=== PATIENT | male | born 1970 | race African-American/Black ===

== ENCOUNTER 2020-04-16 15:37 | Observation (INO) ==
[2020-04-16] MEDS ORDERED: LACTATED RINGERS 2,000 ML IV ONE ×2 (16:11→18:11)
[2020-04-16 16:23] LABS: Basophils % 0.3 % (0.0-0.8); Eosinophils # 0.1 10*3/uL (0.0-0.87); Eosinophils % 2.1 % (0.00-10.9); Hematocrit 36.2 VOL% (42.0-52.0); Immature Granulocytes % 0.6 %; Immature Granulocytes Absolute 0.04 #; Lymphocytes # 1.6 10*3/uL (1.4-4.0); Lymphocytes % 24.8 % (21.2-54.2); Mean Corpuscular HGB Conc 33.1 GM/DL (32-36); Mean Platelet Volume 10.5 FL (9.6-12.0); Monocytes % 13.2 % (1.7-12.7); Platelet Count 204 T/CUMM (130-400); Red Blood Count 3.85 MC/CUMM (3.8-5.5); Red Cell Distribution Width 12.1 % (9.3-17.3); White Blood Count 6.5 T/CUMM (4-12)
[2020-04-16 16:50] LABS: Alanine Aminotransferase 33 U/L (16-61); Alkaline Phosphatase 68 U/L (45-117); Aspartate Amino Transferase 35 U/L (0-37); Bilirubin,Total < 0.39 MG/DL (0.2-1.0); Blood Urea Nitrogen 18 MG/DL (7-18); Calcium 8.4 MG/DL (8.5-10.1); Estimated Glom Filtration Rate 82 ML/MIN; Ferritin 525.2 ng/ml (26-388); Osmolality,Calculated 277.4 MOS/KG (273-304); Total Protein 7.9 G/DL (6.4-8.3)
[2020-04-16 16:51] LABS: Glucose 519 MG/DL (74-106)
[2020-04-16 17:30] LABS: ABG Base Excess -11.2 MMOL/L (-2.5-2.5); ABG HCO3 14.4 MMOL/L (20-26); ABG Oxygen Saturation 97.1 % (95-100); ABG PCO2 31.5 MM HG (35-48); ABG PH 7.278 (7.35-7.45); ABG PO2 107.2 MM HG (80-95); ABG TCO2 15.4 MMOL/L (23-27)
[2020-04-16] MEDS ORDERED: INSULIN NPH/REGULAR 70/30 100 UNIT/ML SUBCUT STA (17:45)
[2020-04-16] MEDS ORDERED: DEXTROSE 50% 25 GM/50 ML VIAL IV PRN (17:46)
[2020-04-16] MEDS ORDERED: GLUCAGON 1 MG VIAL IM PRN (17:46)
[2020-04-16] MEDS ORDERED: ONDANSETRON 4 MG/2 ML VIAL IV PRN (18:05)
[2020-04-16] MEDS ORDERED: ALUMINUM/MAGNES/SIMETH MAX STR 30 ML UDCUP PO PRN (18:05)
[2020-04-16 18:07] LABS: Bacteria,Urine Occasional /HPF (Few); Bilirubin,Urine Negative (Negative); Blood, Urine Negative (Negative); Glucose,Urine (UA) >=500 mg/dL (Negative); Hyaline Casts,Urine 3 /LPF (0-3); Ketones,Urine 5 mg/dL (Negative); Nitrite,Urine Negative (Negative); Protein,Urine Negative; RBC,Urine <1 /HPF (0-4); Urine Appearance CLEAR (Clear); Urine Color Yellow (Yellow); Urine Specific Gravity 1.024 (1.001-1.035); Urine Urobilinogen < 2.0 EU/DL (0.2-1.0); WBC,Urine 2 /HPF (0-6)
[2020-04-16 18:17] LABS: Barbiturates Screen,Urine Negative (Negative); Benzodiazepines Screen,Urine Negative (Negative); Cannabinoid Screen,Urine Negative (Negative); Opiate Screen,Urine Negative (Negative); Phencyclidine Screen,Urine Negative (Negative)
[2020-04-16] MEDS: POTASSIUM CHLORIDE 20 MEQ TABLET PO SCH ×2 (18:36→21:03)
[2020-04-16] MEDS: LACTATED RINGERS 1,000 ML IV SCH (20:10)
[2020-04-16] MEDS ORDERED: LORazepam 2 MG/1 ML VIAL IV PRN (20:11)
[2020-04-16 20:47] LABS: Risk Ratio 2.06; Thyroid Stimulating Hormone 2.06 uIU/ml (0.358-3.74); VLDL CHOLESTEROL 19.4 MG/DL
[2020-04-16] MEDS ORDERED: ENOXAPARIN 40 MG/0.4 ML SYRINGE SUBCUT SCH (21:00)
[2020-04-16 21:29] LABS: Troponin I < 0.015 NG/ML (0.00-0.045)
[2020-04-16] MEDS: INSULIN LISPRO 100 UNIT/ML SUBCUT SCH (21:39)
[2020-04-17] MEDS: INSULIN LISPRO 100 UNIT/ML SUBCUT SCH ×4 (00:23→12:08)
[2020-04-17] MEDS: POTASSIUM CHLORIDE 20 MEQ TABLET PO SCH ×2 (02:24→05:42)
[2020-04-17] MEDS: LACTATED RINGERS 1,000 ML IV SCH ×2 (02:25→09:35)
[2020-04-17] MEDS ORDERED: KETOROLAC 30 MG/1 ML VIAL IV ONE (02:41)
[2020-04-17 05:05] LABS: Calcium 7.7 MG/DL (8.5-10.1); Osmolality,Calculated 275.7 MOS/KG (273-304)
[2020-04-17 05:27] LABS: Troponin I < 0.015 NG/ML (0.00-0.045)
[2020-04-17] MEDS ORDERED: NICOTINE 21 MG/24 HR PATCH TRANSDERM PRN (07:12)
[2020-04-17] MEDS ORDERED: INSULIN NPH/REGULAR 70/30 100 UNIT/ML SUBCUT SCH ×2 (07:30→16:30)
[2020-04-17] MEDS ORDERED: CALCIUM GLUCONATE 2,000 MG in SODIUM CHLORIDE 0.9% 100 ML IV ONE (08:00)
[2020-04-17] MEDS ORDERED: ACETAMINOPHEN 325 MG TABLET PO PRN (08:09)
[2020-04-17] MEDS ORDERED: PANTOPRAZOLE 40 MG TABLET PO SCH (09:00)
[2020-04-17] MEDS ORDERED: THIAMINE 100 MG TABLET PO SCH (09:00)
[2020-04-17] MEDS ORDERED: FOLIC ACID 1 MG TABLET PO SCH (09:00)
[2020-04-17] MEDS ORDERED: MULTIVITAMIN (CENTRUM) TABLET PO SCH (09:00)
[2020-04-17 11:57] VITALS: BP 133/80
== END 2020-04-17 16:00 | disposition home or self-care (01) ==
LOC: N.ED 15:37 → INTOOBSV 18:03 → N.EDINP 18:03 → N.TELEN 18:41
PROVIDERS: ADMIT Internal Medicine; ATTEND Internal Medicine

== ENCOUNTER 2020-10-20 12:07 | Inpatient (IN) ==
[2020-10-20] MEDS ORDERED: SODIUM CHLORIDE 0.9% 1,000 ML IV STA ×2 (13:12→14:01)
[2020-10-20 13:47] LABS: ABG Base Excess -5.9 MMOL/L (-2.5-2.5); ABG HCO3 19.6 MMOL/L (20-26); ABG Oxygen Saturation 98.9 % (95-100); ABG PCO2 39.2 MM HG (35-48); ABG PH 7.313 (7.35-7.45); ABG TCO2 18.4 MMOL/L (23-27); Pt O2 Delivery Device Room Air
[2020-10-20] MEDS ORDERED: cefTRIAXone 1,000 MG in SODIUM CHLORIDE 0.9% 100 ML IV STA (14:03)
[2020-10-20] MEDS ORDERED: AZITHROMYCIN INJ 500 MG in SODIUM CHLORIDE 0.9% 250 ML IV STA (14:04)
[2020-10-20 14:14] LABS: Basophils % 0.3 % (0.0-0.8); Eosinophils # 0.1 10*3/uL (0.0-0.87); Eosinophils % 0.5 % (0.00-10.9); Hematocrit 29.9 VOL% (42.0-52.0); Hemoglobin 9.4 GM/DL (14.0-18.0); Immature Granulocytes % 0.7 %; Immature Granulocytes Absolute 0.09 #; Lymphocytes % 15.2 % (21.2-54.2); Mean Corpuscular HGB Conc 31.4 GM/DL (32-36); Mean Corpuscular Volume 95.8 FL (87-102); Mean Platelet Volume 10.9 FL (9.6-12.0); Monocytes % 9.5 % (1.7-12.7); Neutrophils % 73.8 % (38.7-73.9); Platelet Count 272 T/CUMM (130-400); Red Blood Count 3.12 MC/CUMM (3.8-5.5); Red Cell Distribution Width 14.1 % (9.3-17.3); White Blood Count 13.1 T/CUMM (4-12)
[2020-10-20 14:31] LABS: Albumin 2.7 G/DL (3.4-5.0); Bilirubin,Total 1.1 MG/DL (0.2-1.0); Calcium 9.1 MG/DL (8.5-10.1); Osmolality,Calculated 299.2 MOS/KG (273-304); Total Protein 7.7 G/DL (6.4-8.3)
[2020-10-20] MEDS ORDERED: NOREPINEPHRINE 4 MG/4 ML VIAL IV ONE (14:51)
[2020-10-20] MEDS ORDERED: NOREPINEPHRINE 8 MG in SODIUM CHLORIDE 0.9% 242 ML IV SCH (15:00)
[2020-10-20] MEDS ORDERED: ALBUTEROL 2.5 MG/3 ML NEB RESP TX PRN (15:32)
[2020-10-20] MEDS ORDERED: ONDANSETRON 4 MG/2 ML VIAL IV PRN (15:32)
[2020-10-20] MEDS ORDERED: INSULIN REGULAR 100 UNIT/ML IV ONE (15:35)
[2020-10-20] MEDS: PANTOPRAZOLE 40 MG TABLET PO SCH (16:42)
[2020-10-20] MEDS: SODIUM CHLORIDE 0.9% 1,000 ML IV SCH ×2 (16:42→23:49)
[2020-10-20] MEDS: ENOXAPARIN 40 MG/0.4 ML SYRINGE SUBCUT SCH (17:10)
[2020-10-20] MEDS: INSULIN LISPRO 100 UNIT/ML SUBCUT SCH ×2 (17:24→22:35)
[2020-10-20] MEDS: DEXTROSE 5% NACL 0.45% 1,000 ML IV PRN (18:56)
[2020-10-20 22:45] LABS: Bilirubin,Urine Negative (Negative); Blood, Urine Small mg/dL (Negative); Glucose,Urine (UA) >=500 mg/dL (Negative); Ketones,Urine Negative (Negative); Mucus,Urine Occasional /LPF (Occasional); Nitrite,Urine Negative (Negative); Protein,Urine Negative; RBC,Urine 9 /HPF (0-4); Sperm,Urine Occasional /HPF (Negative); Squamous Epithelial Cell,Urine Occasional /HPF (0-10); Urine Appearance Slightly Hazy (Clear); Urine Color Yellow (Yellow); Urine Specific Gravity 1.023 (1.001-1.035); Urine Urobilinogen < 2.0 EU/DL (0.2-1.0); WBC,Urine 50 /HPF (0-6)
[2020-10-21] MEDS: INSULIN LISPRO 100 UNIT/ML SUBCUT SCH ×6 (01:42→20:10)
[2020-10-21] MEDS: DEXTROSE 5% NACL 0.45% 1,000 ML IV PRN ×2 (02:57→11:55)
[2020-10-21 04:43] LABS: Basophils % 0.3 % (0.0-0.8); Eosinophils # 0.1 10*3/uL (0.0-0.87); Eosinophils % 0.9 % (0.00-10.9); Hematocrit 25.2 VOL% (42.0-52.0); Hemoglobin 8.4 GM/DL (14.0-18.0); Immature Granulocytes % 0.3 %; Immature Granulocytes Absolute 0.04 #; Lymphocytes % 16.3 % (21.2-54.2); Mean Corpuscular HGB Conc 33.3 GM/DL (32-36); Mean Corpuscular Volume 91.3 FL (87-102); Mean Platelet Volume 10.4 FL (9.6-12.0); Monocytes % 9.9 % (1.7-12.7); Neutrophils % 72.3 % (38.7-73.9); Platelet Count 241 T/CUMM (130-400); Red Blood Count 2.76 MC/CUMM (3.8-5.5); Red Cell Distribution Width 13.6 % (9.3-17.3); White Blood Count 12.3 T/CUMM (4-12)
[2020-10-21 05:08] LABS: Albumin 2.3 G/DL (3.4-5.0); Bilirubin,Total 0.4 MG/DL (0.2-1.0); Calcium 7.7 MG/DL (8.5-10.1); Osmolality,Calculated 280.3 MOS/KG (273-304); Potassium 3.6 MMOL/L (3.5-5.1); Total Protein 6.4 G/DL (6.4-8.3)
[2020-10-21] MEDS: SODIUM CHLORIDE 0.9% 1,000 ML IV SCH (07:16)
[2020-10-21] MEDS ORDERED: MAGNESIUM SULF RIDER 2 GM in PREMIX 1 EACH IV PRN (07:34)
[2020-10-21] MEDS: PANTOPRAZOLE 40 MG TABLET PO SCH (08:02)
[2020-10-21] MEDS: FOLIC ACID 1 MG TABLET PO SCH (08:02)
[2020-10-21] MEDS: THIAMINE 100 MG TABLET PO SCH (08:02)
[2020-10-21] MEDS ORDERED: POTASSIUM PHOSPHATE 30 MMOL in SODIUM CHLORIDE 0.9% 250 ML IV ONE (08:30)
[2020-10-21] MEDS: ENOXAPARIN 40 MG/0.4 ML SYRINGE SUBCUT SCH (17:03)
[2020-10-22] MEDS: INSULIN LISPRO 100 UNIT/ML SUBCUT SCH ×6 (00:32→20:47)
[2020-10-22 06:39] LABS: Basophils % 0.2 % (0.0-0.8); Eosinophils # 0.1 10*3/uL (0.0-0.87); Hematocrit 25.1 VOL% (42.0-52.0); Hemoglobin 8.4 GM/DL (14.0-18.0); Immature Granulocytes % 0.4 %; Immature Granulocytes Absolute 0.05 #; Lymphocytes # 1.8 10*3/uL (1.4-4.0); Lymphocytes % 15.6 % (21.2-54.2); Mean Corpuscular HGB Conc 33.5 GM/DL (32-36); Mean Corpuscular Volume 90.9 FL (87-102); Mean Platelet Volume 11.4 FL (9.6-12.0); Monocytes % 10.7 % (1.7-12.7); Neutrophils % 72.1 % (38.7-73.9); Platelet Count 217 T/CUMM (130-400); Red Blood Count 2.76 MC/CUMM (3.8-5.5); Red Cell Distribution Width 13.2 % (9.3-17.3); White Blood Count 11.3 T/CUMM (4-12)
[2020-10-22 06:51] LABS: Calcium 7.9 MG/DL (8.5-10.1); Osmolality,Calculated 276.8 MOS/KG (273-304); Potassium 4.3 MMOL/L (3.5-5.1)
[2020-10-22] MEDS: PANTOPRAZOLE 40 MG TABLET PO SCH (08:07)
[2020-10-22] MEDS: THIAMINE 100 MG TABLET PO SCH (08:07)
[2020-10-22] MEDS: FOLIC ACID 1 MG TABLET PO SCH (08:07)
[2020-10-22] MEDS: SODIUM BICARBONATE 650 MG TABLET PO SCH ×2 (16:30→20:45)
[2020-10-22] MEDS: CLINDAMYCIN INJ 600 MG in PREMIX 1 EACH IV SCH ×2 (16:30→23:58)
[2020-10-22] MEDS: LOPERAMIDE 2 MG CAPSULE PO PRN (16:30)
[2020-10-22] MEDS: NICOTINE 21 MG/24 HR PATCH TRANSDERM SCH (19:20)
[2020-10-22] MEDS: ENOXAPARIN 40 MG/0.4 ML SYRINGE SUBCUT SCH (19:26)
[2020-10-22] MEDS: INSULIN GLARGINE 100 UNIT/ML SUBCUT SCH (20:47)
[2020-10-23] MEDS: INSULIN LISPRO 100 UNIT/ML SUBCUT SCH ×6 (00:02→20:53)
[2020-10-23 06:16] LABS: Basophils % 0.2 % (0.0-0.8); Eosinophils # 0.1 10*3/uL (0.0-0.87); Eosinophils % 0.9 % (0.00-10.9); Hematocrit 23.3 VOL% (42.0-52.0); Hemoglobin 7.7 GM/DL (14.0-18.0); Immature Granulocytes % 0.4 %; Immature Granulocytes Absolute 0.03 #; Lymphocytes # 1.8 10*3/uL (1.4-4.0); Lymphocytes % 22.5 % (21.2-54.2); Platelet Count 247 T/CUMM (130-400); Red Blood Count 2.56 MC/CUMM (3.8-5.5); Red Cell Distribution Width 13.4 % (9.3-17.3); White Blood Count 8.1 T/CUMM (4-12)
[2020-10-23 06:38] LABS: Calcium 7.7 MG/DL (8.5-10.1); Osmolality,Calculated 274.4 MOS/KG (273-304); Potassium 4.1 MMOL/L (3.5-5.1)
[2020-10-23 06:39] LABS: Calcium 7.8 MG/DL (8.5-10.1); Osmolality,Calculated 274.4 MOS/KG (273-304); Potassium 4.1 MMOL/L (3.5-5.1)
[2020-10-23] MEDS: CLINDAMYCIN INJ 600 MG in PREMIX 1 EACH IV SCH ×2 (08:22→16:05)
[2020-10-23] MEDS: SODIUM BICARBONATE 650 MG TABLET PO SCH ×3 (08:23→20:15)
[2020-10-23] MEDS: FOLIC ACID 1 MG TABLET PO SCH (08:23)
[2020-10-23] MEDS: PANTOPRAZOLE 40 MG TABLET PO SCH (08:23)
[2020-10-23] MEDS: THIAMINE 100 MG TABLET PO SCH (08:23)
[2020-10-23] MEDS: NICOTINE 21 MG/24 HR PATCH TRANSDERM SCH (08:23)
[2020-10-23] MEDS: LOPERAMIDE 2 MG CAPSULE PO PRN ×2 (08:32→22:05)
[2020-10-23 10:04] LABS: % Iron Saturation 12.5 % (18-50)
[2020-10-23 10:22] LABS: Folate 13.9 NG/ML (5.38-24.0); Vitamin B12 788 PG/ML (211-911)
[2020-10-23] MEDS: cefTRIAXone 1,000 MG in SYRINGE 1 EACH IV SCH (11:09)
[2020-10-23 14:16] LABS: HIV Antigen/Antibody Result Nonreactive (Nonreactive)
[2020-10-23] MEDS ORDERED: SODIUM CHLORIDE 0.9% 1,000 ML IV PRN (15:44)
[2020-10-23] MEDS ORDERED: IRON SUCROSE 200 MG in SODIUM CHLORIDE 0.9% 100 ML IV ONE (17:00)
[2020-10-23] MEDS: ENOXAPARIN 40 MG/0.4 ML SYRINGE SUBCUT SCH (17:12)
[2020-10-23] MEDS: INSULIN GLARGINE 100 UNIT/ML SUBCUT SCH (20:54)
[2020-10-24] MEDS: INSULIN LISPRO 100 UNIT/ML SUBCUT SCH ×6 (00:43→21:26)
[2020-10-24] MEDS: CLINDAMYCIN INJ 600 MG in PREMIX 1 EACH IV SCH ×4 (01:41→23:31)
[2020-10-24 05:45] LABS: Basophils % 0.3 % (0.0-0.8); Eosinophils # 0.1 10*3/uL (0.0-0.87); Eosinophils % 0.9 % (0.00-10.9); Hematocrit 35.1 VOL% (42.0-52.0); Immature Granulocytes % 0.5 %; Immature Granulocytes Absolute 0.05 #; Lymphocytes # 1.6 10*3/uL (1.4-4.0); Lymphocytes % 16.2 % (21.2-54.2); Mean Corpuscular HGB Conc 34.2 GM/DL (32-36); Mean Corpuscular Volume 89.1 FL (87-102); Mean Platelet Volume 10.9 FL (9.6-12.0); Monocytes % 6.3 % (1.7-12.7); Neutrophils % 75.8 % (38.7-73.9); Platelet Count 233 T/CUMM (130-400); Red Cell Distribution Width 13.3 % (9.3-17.3); White Blood Count 10.1 T/CUMM (4-12)
[2020-10-24 05:48] LABS: Red Blood Count 3.94 MC/CUMM (3.8-5.5)
[2020-10-24 06:21] LABS: Potassium 4.8 MMOL/L (3.5-5.1)
[2020-10-24] MEDS: LOPERAMIDE 2 MG CAPSULE PO PRN (08:53)
[2020-10-24] MEDS: NICOTINE 21 MG/24 HR PATCH TRANSDERM SCH (08:53)
[2020-10-24] MEDS: PANTOPRAZOLE 40 MG TABLET PO SCH (08:54)
[2020-10-24] MEDS: THIAMINE 100 MG TABLET PO SCH (08:54)
[2020-10-24] MEDS: SODIUM BICARBONATE 650 MG TABLET PO SCH ×3 (08:55→21:27)
[2020-10-24] MEDS: FOLIC ACID 1 MG TABLET PO SCH (08:55)
[2020-10-24] MEDS: cefTRIAXone 1,000 MG in SYRINGE 1 EACH IV SCH (12:21)
[2020-10-24] MEDS: IRON SUCROSE 100 MG/5 ML VIAL IV SCH (12:21)
[2020-10-24] MEDS: ENOXAPARIN 40 MG/0.4 ML SYRINGE SUBCUT SCH (17:11)
[2020-10-24] MEDS: INSULIN GLARGINE 100 UNIT/ML SUBCUT SCH (21:28)
[2020-10-25] MEDS: INSULIN LISPRO 100 UNIT/ML SUBCUT SCH ×6 (01:00→20:30)
[2020-10-25 06:39] LABS: Basophils % 0.3 % (0.0-0.8); Eosinophils # 0.1 10*3/uL (0.0-0.87); Eosinophils % 0.7 % (0.00-10.9); Hematocrit 32.1 VOL% (42.0-52.0); Hemoglobin 11.1 GM/DL (14.0-18.0); Immature Granulocytes % 0.4 %; Immature Granulocytes Absolute 0.04 #; Lymphocytes # 1.7 10*3/uL (1.4-4.0); Lymphocytes % 15.5 % (21.2-54.2); Mean Corpuscular HGB Conc 34.6 GM/DL (32-36); Mean Corpuscular Volume 87.9 FL (87-102); Mean Platelet Volume 10.1 FL (9.6-12.0); Monocytes % 8.6 % (1.7-12.7); Neutrophils % 74.5 % (38.7-73.9); Platelet Count 289 T/CUMM (130-400); Red Blood Count 3.65 MC/CUMM (3.8-5.5); Red Cell Distribution Width 13.2 % (9.3-17.3); White Blood Count 10.9 T/CUMM (4-12)
[2020-10-25 07:07] LABS: Calcium 8.1 MG/DL (8.5-10.1); Osmolality,Calculated 271.7 MOS/KG (273-304); Potassium 4.4 MMOL/L (3.5-5.1)
[2020-10-25] MEDS: THIAMINE 100 MG TABLET PO SCH (08:34)
[2020-10-25] MEDS: LOPERAMIDE 2 MG CAPSULE PO PRN (08:34)
[2020-10-25] MEDS: FOLIC ACID 1 MG TABLET PO SCH (08:34)
[2020-10-25] MEDS: SODIUM BICARBONATE 650 MG TABLET PO SCH ×3 (08:34→20:28)
[2020-10-25] MEDS: PANTOPRAZOLE 40 MG TABLET PO SCH (08:34)
[2020-10-25] MEDS: NICOTINE 21 MG/24 HR PATCH TRANSDERM SCH (08:35)
[2020-10-25] MEDS: IRON SUCROSE 100 MG/5 ML VIAL IV SCH (08:35)
[2020-10-25] MEDS: CLINDAMYCIN INJ 600 MG in PREMIX 1 EACH IV SCH ×2 (08:36→16:14)
[2020-10-25 10:06] LABS: Cancer Antigen 19-9 < 1.2 U/ML (0-35); Carcinoembryonic Antigen 4.3 NG/ML (0.0-5.0); Prostate Specific Antigen Diag < 0.1 NG/ML (0-3.6)
[2020-10-25] MEDS: INSULIN GLARGINE 100 UNIT/ML SUBCUT SCH (10:46)
[2020-10-25] MEDS ORDERED: hydrALAZINE 20 MG/1 ML VIAL IV PRN (11:38)
[2020-10-25] MEDS: cefTRIAXone 1,000 MG in SYRINGE 1 EACH IV SCH (11:57)
[2020-10-25] MEDS: ENOXAPARIN 40 MG/0.4 ML SYRINGE SUBCUT SCH (17:50)
[2020-10-26] MEDS: CLINDAMYCIN INJ 600 MG in PREMIX 1 EACH IV SCH ×4 (00:56→23:00)
[2020-10-26] MEDS: INSULIN LISPRO 100 UNIT/ML SUBCUT SCH ×7 (00:58→23:01)
[2020-10-26 01:06] LABS: Basophils % 0.4 % (0.0-0.8); Eosinophils # 0.1 10*3/uL (0.0-0.87); Eosinophils % 0.8 % (0.00-10.9); Hematocrit 31.4 VOL% (42.0-52.0); Hemoglobin 10.6 GM/DL (14.0-18.0); Immature Granulocytes % 0.7 %; Immature Granulocytes Absolute 0.08 #; Lymphocytes # 2.1 10*3/uL (1.4-4.0); Lymphocytes % 18.7 % (21.2-54.2); Mean Corpuscular HGB Conc 33.8 GM/DL (32-36); Mean Corpuscular Volume 89.2 FL (87-102); Mean Platelet Volume 9.4 FL (9.6-12.0); Neutrophils % 68.4 % (38.7-73.9); Platelet Count 288 T/CUMM (130-400); Red Blood Count 3.52 MC/CUMM (3.8-5.5); Red Cell Distribution Width 13.4 % (9.3-17.3); White Blood Count 11.4 T/CUMM (4-12)
[2020-10-26] MEDS ORDERED: DEXTROSE 50% 25 GM/50 ML VIAL IV ONE (01:12)
[2020-10-26] MEDS: LOPERAMIDE 2 MG CAPSULE PO PRN (03:36)
[2020-10-26 05:47] LABS: Calcium 8.1 MG/DL (8.5-10.1); Osmolality,Calculated 270.1 MOS/KG (273-304); Potassium 4.6 MMOL/L (3.5-5.1)
[2020-10-26] MEDS: PANTOPRAZOLE 40 MG TABLET PO SCH (09:16)
[2020-10-26] MEDS: SODIUM BICARBONATE 650 MG TABLET PO SCH ×3 (09:16→20:20)
[2020-10-26] MEDS: THIAMINE 100 MG TABLET PO SCH (09:17)
[2020-10-26] MEDS: NICOTINE 21 MG/24 HR PATCH TRANSDERM SCH (09:18)
[2020-10-26] MEDS: FOLIC ACID 1 MG TABLET PO SCH (09:19)
[2020-10-26] MEDS: INSULIN GLARGINE 100 UNIT/ML SUBCUT SCH (10:02)
[2020-10-26] MEDS: IRON SUCROSE 100 MG/5 ML VIAL IV SCH (10:40)
[2020-10-26] MEDS: cefTRIAXone 1,000 MG in SYRINGE 1 EACH IV SCH (10:57)
[2020-10-26] MEDS: ENOXAPARIN 40 MG/0.4 ML SYRINGE SUBCUT SCH (18:20)
[2020-10-27] MEDS: INSULIN LISPRO 100 UNIT/ML SUBCUT SCH ×3 (05:34→12:22)
[2020-10-27 05:49] LABS: Basophils # 0.1 10*3/uL (0.0-0.2); Basophils % 0.5 % (0.0-0.8); Eosinophils # 0.1 10*3/uL (0.0-0.87); Eosinophils % 0.9 % (0.00-10.9); Hemoglobin 10.7 GM/DL (14.0-18.0); Immature Granulocytes % 0.5 %; Immature Granulocytes Absolute 0.05 #; Lymphocytes % 18.7 % (21.2-54.2); Mean Corpuscular HGB Conc 33.4 GM/DL (32-36); Mean Corpuscular Volume 91.2 FL (87-102); Mean Platelet Volume 9.7 FL (9.6-12.0); Monocytes % 9.9 % (1.7-12.7); Neutrophils % 69.5 % (38.7-73.9); Platelet Count 308 T/CUMM (130-400); Red Blood Count 3.51 MC/CUMM (3.8-5.5); Red Cell Distribution Width 13.4 % (9.3-17.3); White Blood Count 10.5 T/CUMM (4-12)
[2020-10-27 06:07] LABS: Calcium 7.7 MG/DL (8.5-10.1); Osmolality,Calculated 282.5 MOS/KG (273-304); Potassium 4.9 MMOL/L (3.5-5.1)
[2020-10-27 07:06] LABS: Burr Cells 1+; Platelet Estimate Normal
[2020-10-27] MEDS: CLINDAMYCIN INJ 600 MG in PREMIX 1 EACH IV SCH (08:35)
[2020-10-27] MEDS: THIAMINE 100 MG TABLET PO SCH (08:36)
[2020-10-27] MEDS: PANTOPRAZOLE 40 MG TABLET PO SCH (08:36)
[2020-10-27] MEDS: NICOTINE 21 MG/24 HR PATCH TRANSDERM SCH (08:36)
[2020-10-27] MEDS: FOLIC ACID 1 MG TABLET PO SCH (08:36)
[2020-10-27] MEDS: SODIUM BICARBONATE 650 MG TABLET PO SCH (08:36)
[2020-10-27 09:03] LABS: Band Neutrophils 14 % (0-10); Eosinophils 2 % (0-10); Lymphocytes 20 % (20-55); Segmented Neutrophils 52 % (50-85); Total Cells Counted 100
[2020-10-27 09:04] LABS: Anisocytosis Slight; Macrocytosis Slight
[2020-10-27 11:34] VITALS: BP 114/86
[2020-10-27] MEDS: IRON SUCROSE 100 MG/5 ML VIAL IV SCH (12:52)
[2020-10-27] MEDS: cefTRIAXone 1,000 MG in SYRINGE 1 EACH IV SCH (13:16)
== END 2020-10-27 16:00 | disposition home or self-care (01) | DRG 637 ==
LOC: N.ED 12:07 → N.ICU 15:33 → SUATTDRO 15:33 → N.CC 16:01 → N.4E 10-21 12:58
PROVIDERS: ADMIT Internal Medicine; ATTEND Internal Medicine

== ENCOUNTER 2020-11-05 15:01 | Inpatient (IN) ==
[2020-11-05] MEDS ORDERED: INSULIN REGULAR 100 UNIT/ML IV STA (15:51)
[2020-11-05] MEDS ORDERED: SODIUM CHLORIDE 0.9% 1,000 ML IV STA ×2 (15:51→17:45)
[2020-11-05 16:44] LABS: Basophils % 0.3 % (0.0-0.8); Eosinophils % 0.1 % (0.00-10.9); Hematocrit 32.7 VOL% (42.0-52.0); Hemoglobin 10.4 GM/DL (14.0-18.0); Immature Granulocytes % 0.7 %; Immature Granulocytes Absolute 0.09 #; Lymphocytes # 1.3 10*3/uL (1.4-4.0); Lymphocytes % 9.5 % (21.2-54.2); Mean Corpuscular HGB Conc 31.8 GM/DL (32-36); Mean Corpuscular Volume 95.1 FL (87-102); Mean Platelet Volume 10.5 FL (9.6-12.0); Monocytes % 4.9 % (1.7-12.7); NRBC # 0.09 10*3/uL; Neutrophils % 84.5 % (38.7-73.9); Platelet Count 225 T/CUMM (130-400); Red Blood Count 3.44 MC/CUMM (3.8-5.5); Red Cell Distribution Width 14.5 % (9.3-17.3); White Blood Count 13.8 T/CUMM (4-12)
[2020-11-05 17:06] LABS: Alanine Aminotransferase 14 U/L (16-61); Albumin 1.5 G/DL (3.4-5.0); Alkaline Phosphatase 108 U/L (45-117); Aspartate Amino Transferase 8 U/L (0-37); Bilirubin,Total < 0.39 MG/DL (0.2-1.0); Blood Urea Nitrogen 18 MG/DL (7-18); Calcium 8.2 MG/DL (8.5-10.1); Carbon Dioxide 15 MMOL/L (21-32); Estimated Glom Filtration Rate 87 ML/MIN; Glucose 330 MG/DL (74-106); Osmolality,Calculated 308.3 MOS/KG (273-304); Potassium 4.5 MMOL/L (3.5-5.1); Sodium 148 MMOL/L (136-145); Total Protein 6.1 G/DL (6.4-8.3)
[2020-11-05 17:18] LABS: Atypical Lymphocytes Few; Band Neutrophils 13 % (0-10); Burr Cells Few; Lymphocytes 8 % (20-55); Nucleated Red Blood Cells 3 (0-5); Platelet Estimate Normal; Segmented Neutrophils 73 % (50-85); Total Cells Counted 100
[2020-11-05] MEDS ORDERED: LEVOFLOXACIN INJ 750 MG in PREMIX 1 EACH IV STA (17:20)
[2020-11-05] MEDS ORDERED: NOREPINEPHRINE 4 MG/4 ML VIAL IV ONE (18:23)
[2020-11-05] MEDS ORDERED: INSULIN REGULAR 100 UNIT/ML SUBCUT STA (18:23)
[2020-11-05] MEDS ORDERED: NOREPINEPHRINE 8 MG in SODIUM CHLORIDE 0.9% 242 ML IV PRN (18:24)
[2020-11-05] MEDS ORDERED: SODIUM BICARBONATE 50 MEQ/50 ML VIAL IV STA (18:51)
[2020-11-05] MEDS ORDERED: ONDANSETRON 4 MG/2 ML VIAL IV PRN (18:54)
[2020-11-05] MEDS ORDERED: guaiFENesin/DM ER 600-30 MG TABLET PO PRN (18:54)
[2020-11-05] MEDS ORDERED: SODIUM BICARBONATE 50 MEQ/50 ML VIAL IV ONE (18:57)
[2020-11-05] MEDS ORDERED: HYDROCORTISONE 100 MG VIAL IV STA (18:59)
[2020-11-05] MEDS ORDERED: DEXTROSE 50% 25 GM/50 ML VIAL IV PRN (19:01)
[2020-11-05] MEDS ORDERED: GLUCAGON 1 MG VIAL IM PRN ×2 (19:01)
[2020-11-05] MEDS: LACTATED RINGERS 1,000 ML IV SCH (19:50)
[2020-11-05] MEDS: ALBUTEROL/IPRATROPIUM 3 ML NEB RESP TX SCH (19:53)
[2020-11-05] MEDS: PIPERACILLIN/TAZOBACTAM 3,375 MG in SODIUM CHLORIDE 0.9% 100 ML IV SCH (20:29)
[2020-11-05] MEDS: DOCUSATE SODIUM 100 MG CAPSULE PO SCH (20:30)
[2020-11-05] MEDS: ENOXAPARIN 40 MG/0.4 ML SYRINGE SUBCUT SCH (20:30)
[2020-11-05 21:02] LABS: ABG Base Excess -14.7 MMOL/L (-2.5-2.5); ABG HCO3 13.2 MMOL/L (20-26); ABG Oxygen Saturation 91.9 % (95-100); ABG PCO2 37.3 MM HG (35-48); ABG PO2 75.1 MM HG (80-95); ABG TCO2 12.4 MMOL/L (23-27)
[2020-11-05 21:05] LABS: ABG PH 7.165 (7.35-7.45)
[2020-11-05 21:32] LABS: Bilirubin,Urine Negative (Negative); Blood, Urine Small mg/dL (Negative); Glucose,Urine (UA) >=500 mg/dL (Negative); Hyaline Casts,Urine 14 /LPF (0-3); Ketones,Urine Negative (Negative); Mucus,Urine Occasional /LPF (Occasional); Nitrite,Urine Negative (Negative); Protein,Urine Negative; RBC,Urine 6 /HPF (0-4); Sperm,Urine Occasional /HPF (Negative); Squamous Epithelial Cell,Urine Occasional /HPF (0-10); Urine Appearance CLEAR (Clear); Urine Color Straw (Yellow); Urine Specific Gravity 1.016 (1.001-1.035); Urine Urobilinogen < 2.0 EU/DL (0.2-1.0); WBC,Urine 1 /HPF (0-6)
[2020-11-05 22:03] LABS: Barbiturates Screen,Urine Negative (Negative); Benzodiazepines Screen,Urine Negative (Negative); Cannabinoid Screen,Urine Negative (Negative); Opiate Screen,Urine Negative (Negative); Phencyclidine Screen,Urine Negative (Negative)
[2020-11-05] MEDS: SODIUM BICARB INJ 50 MEQ in SODIUM CHLORIDE 0.45% 1,000 ML IV SCH (23:00)
[2020-11-06] MEDS: VANCOMYCIN INJ 750 MG in SODIUM CHLORIDE 0.9% 250 ML IV SCH ×2 (00:50→14:57)
[2020-11-06] MEDS: ALBUTEROL/IPRATROPIUM 3 ML NEB RESP TX SCH ×4 (01:00→19:52)
[2020-11-06] MEDS: INSULIN REGULAR 100 UNIT/ML SUBCUT SCH ×4 (01:40→18:38)
[2020-11-06] MEDS: INSULIN GLARGINE 100 UNIT/ML SUBCUT SCH ×2 (03:49→22:22)
[2020-11-06] MEDS: HYDROCORTISONE 100 MG VIAL IV SCH ×4 (04:02→22:33)
[2020-11-06] MEDS: PIPERACILLIN/TAZOBACTAM 3,375 MG in SODIUM CHLORIDE 0.9% 100 ML IV SCH ×3 (04:03→20:49)
[2020-11-06 04:19] LABS: ABG Base Excess -11.3 MMOL/L (-2.5-2.5); ABG HCO3 13.8 MMOL/L (20-26); ABG Oxygen Saturation 98.1 % (95-100); ABG PCO2 28.8 MM HG (35-48); ABG PH 7.297 (7.35-7.45); ABG PO2 124.6 MM HG (80-95); ABG TCO2 14.6 MMOL/L (23-27); Allen Test Positive; Pt O2 Delivery Device Venturi Mask
[2020-11-06 04:29] LABS: Basophils % 0.2 % (0.0-0.8); Hematocrit 34.7 VOL% (42.0-52.0); Hemoglobin 10.7 GM/DL (14.0-18.0); Immature Granulocytes % 0.5 %; Immature Granulocytes Absolute 0.07 #; Lymphocytes # 1.1 10*3/uL (1.4-4.0); Lymphocytes % 7.2 % (21.2-54.2); Mean Corpuscular HGB Conc 30.8 GM/DL (32-36); Mean Platelet Volume 10.3 FL (9.6-12.0); Monocytes % 2.3 % (1.7-12.7); NRBC # 0.09 10*3/uL; Neutrophils % 89.8 % (38.7-73.9); Platelet Count 239 T/CUMM (130-400); Red Blood Count 3.54 MC/CUMM (3.8-5.5); Red Cell Distribution Width 14.7 % (9.3-17.3); White Blood Count 14.6 T/CUMM (4-12)
[2020-11-06 04:50] LABS: Alanine Aminotransferase 19 U/L (16-61); Albumin 1.6 G/DL (3.4-5.0); Alkaline Phosphatase 107 U/L (45-117); Aspartate Amino Transferase 10 U/L (0-37); Bilirubin,Total < 0.39 MG/DL (0.2-1.0); Blood Urea Nitrogen 18 MG/DL (7-18); Calcium 8.2 MG/DL (8.5-10.1); Carbon Dioxide 15 MMOL/L (21-32); Estimated Glom Filtration Rate 94 ML/MIN; Glucose 220 MG/DL (74-106); Osmolality,Calculated 302.3 MOS/KG (273-304); Potassium 4.6 MMOL/L (3.5-5.1); Sodium 148 MMOL/L (136-145); Total Protein 6.5 G/DL (6.4-8.3)
[2020-11-06 05:04] LABS: Band Neutrophils 5 % (0-10); Lymphocytes 13 % (20-55); Nucleated Red Blood Cells 1 (0-5); Platelet Estimate Adequate; Segmented Neutrophils 79 % (50-85); Total Cells Counted 100
[2020-11-06 05:05] LABS: Hypochromasia 1+; Microcytosis 1+
[2020-11-06] MEDS: LACTATED RINGERS 1,000 ML IV SCH (07:17)
[2020-11-06] MEDS: SODIUM BICARB INJ 50 MEQ in SODIUM CHLORIDE 0.45% 1,000 ML IV SCH (07:50)
[2020-11-06] MEDS: DOCUSATE SODIUM 100 MG CAPSULE PO SCH ×2 (09:18→22:22)
[2020-11-06] MEDS: PANTOPRAZOLE 40 MG TABLET PO SCH (09:18)
[2020-11-06 09:56] LABS: RPR Confirm - Less than 1 yr REACTIVE (Nonreactive)
[2020-11-06] MEDS ORDERED: SODIUM BICARBONATE 50 MEQ/50 ML VIAL IV ONE (14:04)
[2020-11-06] MEDS ORDERED: SODIUM BICARB INJ 150 MEQ in DEXTROSE 5% 850 ML IV SCH (15:00)
[2020-11-06] MEDS: SODIUM BICARB INJ 150 MEQ in STERILE WATER INJ 850 ML IV SCH (16:04)
[2020-11-06] MEDS: ENOXAPARIN 40 MG/0.4 ML SYRINGE SUBCUT SCH (22:00)
[2020-11-07] MEDS: ALBUTEROL/IPRATROPIUM 3 ML NEB RESP TX SCH ×3 (00:34→14:46)
[2020-11-07] MEDS: INSULIN REGULAR 100 UNIT/ML SUBCUT SCH ×5 (00:46→20:14)
[2020-11-07] MEDS: VANCOMYCIN INJ 750 MG in SODIUM CHLORIDE 0.9% 250 ML IV SCH ×2 (00:51→11:37)
[2020-11-07] MEDS: SODIUM BICARB INJ 150 MEQ in STERILE WATER INJ 850 ML IV SCH (03:06)
[2020-11-07 04:34] LABS: Basophils % 0.2 % (0.0-0.8); Hematocrit 29.4 VOL% (42.0-52.0); Hemoglobin 9.6 GM/DL (14.0-18.0); Immature Granulocytes % 0.4 %; Immature Granulocytes Absolute 0.05 #; Lymphocytes # 1.3 10*3/uL (1.4-4.0); Lymphocytes % 9.6 % (21.2-54.2); Mean Corpuscular HGB Conc 32.7 GM/DL (32-36); Mean Corpuscular Volume 94.5 FL (87-102); Mean Platelet Volume 10.4 FL (9.6-12.0); Monocytes % 1.7 % (1.7-12.7); NRBC # 0.11 10*3/uL; Neutrophils % 88.1 % (38.7-73.9); Platelet Count 224 T/CUMM (130-400); Red Blood Count 3.11 MC/CUMM (3.8-5.5); Red Cell Distribution Width 14.6 % (9.3-17.3); White Blood Count 13.7 T/CUMM (4-12)
[2020-11-07] MEDS: PIPERACILLIN/TAZOBACTAM 3,375 MG in SODIUM CHLORIDE 0.9% 100 ML IV SCH ×3 (04:48→20:05)
[2020-11-07 05:05] LABS: Alanine Aminotransferase 17 U/L (16-61); Albumin 1.5 G/DL (3.4-5.0); Alkaline Phosphatase 100 U/L (45-117); Aspartate Amino Transferase 22 U/L (0-37); Bilirubin,Total < 0.39 MG/DL (0.2-1.0); Blood Urea Nitrogen 17 MG/DL (7-18); Calcium 7.8 MG/DL (8.5-10.1); Carbon Dioxide 24 MMOL/L (21-32); Estimated Glom Filtration Rate 105 ML/MIN; Glucose 183 MG/DL (74-106); Osmolality,Calculated 292.8 MOS/KG (273-304); Potassium 3.3 MMOL/L (3.5-5.1); Sodium 144 MMOL/L (136-145); Total Protein 6.5 G/DL (6.4-8.3)
[2020-11-07 05:06] LABS: Band Neutrophils 4 % (0-10); Hypochromasia 1+; Lymphocytes 7 % (20-55); Microcytosis 1+; Segmented Neutrophils 88 % (50-85); Total Cells Counted 100
[2020-11-07 05:07] LABS: Platelet Estimate Normal
[2020-11-07] MEDS: HYDROCORTISONE 100 MG VIAL IV SCH (06:36)
[2020-11-07] MEDS: POTASSIUM CHLORIDE 20 MEQ TABLET PO PRN ×2 (09:28→11:37)
[2020-11-07] MEDS: PANTOPRAZOLE 40 MG TABLET PO SCH (09:28)
[2020-11-07] MEDS: DOCUSATE SODIUM 100 MG CAPSULE PO SCH (09:28)
[2020-11-07] MEDS: THIAMINE 100 MG TABLET PO SCH (11:37)
[2020-11-07] MEDS: MULTIVITAMIN (CENTRUM) TABLET PO SCH (11:37)
[2020-11-07] MEDS: FOLIC ACID 1 MG TABLET PO SCH (11:37)
[2020-11-07] MEDS: CHOLESTYRAMINE 4 GM PACK PO SCH ×3 (11:37→20:13)
[2020-11-07] MEDS: SODIUM CHLORIDE 0.45% 1,000 ML IV SCH (11:37)
[2020-11-07 11:52] LABS: HIV Antigen/Antibody Result Nonreactive (Nonreactive)
[2020-11-07] MEDS: chlordiazePOXIDE 25 MG CAPSULE PO SCH ×2 (17:20→23:05)
[2020-11-07] MEDS: INSULIN GLARGINE 100 UNIT/ML SUBCUT SCH (22:51)
[2020-11-07] MEDS: ENOXAPARIN 40 MG/0.4 ML SYRINGE SUBCUT SCH (23:05)
[2020-11-08] MEDS: ALBUTEROL/IPRATROPIUM 3 ML NEB RESP TX SCH ×5 (00:38→19:37)
[2020-11-08] MEDS: VANCOMYCIN INJ 750 MG in SODIUM CHLORIDE 0.9% 250 ML IV SCH ×2 (00:55→12:30)
[2020-11-08] MEDS: PIPERACILLIN/TAZOBACTAM 3,375 MG in SODIUM CHLORIDE 0.9% 100 ML IV SCH ×3 (04:09→21:55)
[2020-11-08 05:37] LABS: Basophils % 0.3 % (0.0-0.8); Eosinophils % 0.4 % (0.00-10.9); Hemoglobin 8.8 GM/DL (14.0-18.0); Immature Granulocytes % 0.5 %; Immature Granulocytes Absolute 0.05 #; Lymphocytes # 1.9 10*3/uL (1.4-4.0); Lymphocytes % 16.8 % (21.2-54.2); Mean Corpuscular HGB Conc 31.4 GM/DL (32-36); Mean Corpuscular Volume 95.9 FL (87-102); Monocytes % 5.1 % (1.7-12.7); NRBC # 0.13 10*3/uL; Neutrophils % 76.9 % (38.7-73.9); Platelet Count 169 T/CUMM (130-400); Red Blood Count 2.92 MC/CUMM (3.8-5.5); White Blood Count 11.1 T/CUMM (4-12)
[2020-11-08 06:03] LABS: Band Neutrophils 1 % (0-10); Calcium 8.1 MG/DL (8.5-10.1); Lymphocytes 19 % (20-55); Platelet Estimate Adequate; Potassium 3.4 MMOL/L (3.5-5.1); Segmented Neutrophils 76 % (50-85); Total Cells Counted 100
[2020-11-08 06:04] LABS: Hypochromasia 1+; Microcytosis 1+
[2020-11-08] MEDS: CHOLESTYRAMINE 4 GM PACK PO SCH ×4 (08:35→22:27)
[2020-11-08] MEDS: PANTOPRAZOLE 40 MG TABLET PO SCH (08:35)
[2020-11-08] MEDS: FOLIC ACID 1 MG TABLET PO SCH (08:36)
[2020-11-08] MEDS: chlordiazePOXIDE 25 MG CAPSULE PO SCH (08:36)
[2020-11-08] MEDS: THIAMINE 100 MG TABLET PO SCH (08:36)
[2020-11-08] MEDS: predniSONE 20 MG TABLET PO SCH (08:36)
[2020-11-08] MEDS: INSULIN REGULAR 100 UNIT/ML SUBCUT SCH ×4 (08:36→22:25)
[2020-11-08] MEDS: MULTIVITAMIN (CENTRUM) TABLET PO SCH (08:36)
[2020-11-08] MEDS: POTASSIUM CHLORIDE 20 MEQ TABLET PO PRN ×3 (10:11→16:00)
[2020-11-08] MEDS ORDERED: chlordiazePOXIDE 25 MG CAPSULE PO PRN (10:36)
[2020-11-08] MEDS ORDERED: DEXTROSE 5% 1,000 ML IV SCH (11:00)
[2020-11-08] MEDS: BICILLIN LA 2,400,000 UNIT/4 ML SYRINGE IM SCH (15:04)
[2020-11-08] MEDS: SODIUM CHLORIDE 0.45% 1,000 ML IV SCH ×2 (22:25)
[2020-11-08] MEDS: ENOXAPARIN 40 MG/0.4 ML SYRINGE SUBCUT SCH (22:27)
[2020-11-09] MEDS: ALBUTEROL/IPRATROPIUM 3 ML NEB RESP TX SCH ×4 (00:56→19:07)
[2020-11-09] MEDS: PIPERACILLIN/TAZOBACTAM 3,375 MG in SODIUM CHLORIDE 0.9% 100 ML IV SCH ×3 (05:16→22:09)
[2020-11-09 06:03] LABS: Basophils % 0.1 % (0.0-0.8); Hematocrit 29.8 VOL% (42.0-52.0); Hemoglobin 9.2 GM/DL (14.0-18.0); Immature Granulocytes % 0.3 %; Immature Granulocytes Absolute 0.04 #; Lymphocytes # 0.9 10*3/uL (1.4-4.0); Lymphocytes % 7.5 % (21.2-54.2); Mean Corpuscular HGB Conc 30.9 GM/DL (32-36); Mean Corpuscular Volume 97.7 FL (87-102); Mean Platelet Volume 10.7 FL (9.6-12.0); Monocytes % 4.6 % (1.7-12.7); NRBC # 0.15 10*3/uL; Neutrophils % 87.5 % (38.7-73.9); Platelet Count 171 T/CUMM (130-400); Red Blood Count 3.05 MC/CUMM (3.8-5.5); Red Cell Distribution Width 15.5 % (9.3-17.3); White Blood Count 11.5 T/CUMM (4-12)
[2020-11-09 06:09] LABS: Calcium 8.1 MG/DL (8.5-10.1); Potassium 3.7 MMOL/L (3.5-5.1)
[2020-11-09] MEDS: CHOLESTYRAMINE 4 GM PACK PO SCH ×4 (08:23→22:08)
[2020-11-09] MEDS: INSULIN REGULAR 100 UNIT/ML SUBCUT SCH ×4 (08:23→22:08)
[2020-11-09] MEDS: MULTIVITAMIN (CENTRUM) TABLET PO SCH (08:24)
[2020-11-09] MEDS: PANTOPRAZOLE 40 MG TABLET PO SCH (08:24)
[2020-11-09] MEDS: predniSONE 20 MG TABLET PO SCH (08:24)
[2020-11-09] MEDS: FOLIC ACID 1 MG TABLET PO SCH (08:24)
[2020-11-09] MEDS: THIAMINE 100 MG TABLET PO SCH (08:24)
[2020-11-09 08:47] LABS: Anisocytosis 1+; Eosinophils 1 % (0-10); Lymphocytes 12 % (20-55); Macrocytosis 1+; Metamyelocytes 1 %; Platelet Estimate Normal; Segmented Neutrophils 84 % (50-85); Total Cells Counted 100
[2020-11-09] MEDS: SODIUM CHLORIDE 0.45% 1,000 ML IV SCH (17:45)
[2020-11-09] MEDS: ENOXAPARIN 40 MG/0.4 ML SYRINGE SUBCUT SCH (22:09)
[2020-11-10] MEDS: ALBUTEROL/IPRATROPIUM 3 ML NEB RESP TX SCH ×4 (00:51→19:53)
[2020-11-10] MEDS: PIPERACILLIN/TAZOBACTAM 3,375 MG in SODIUM CHLORIDE 0.9% 100 ML IV SCH ×3 (04:20→20:57)
[2020-11-10 06:16] LABS: Basophils % 0.1 % (0.0-0.8); Hematocrit 29.8 VOL% (42.0-52.0); Hemoglobin 9.3 GM/DL (14.0-18.0); Immature Granulocytes % 0.6 %; Immature Granulocytes Absolute 0.08 #; Lymphocytes # 1.6 10*3/uL (1.4-4.0); Lymphocytes % 11.6 % (21.2-54.2); Mean Corpuscular HGB Conc 31.2 GM/DL (32-36); Mean Corpuscular Volume 96.8 FL (87-102); Mean Platelet Volume 10.5 FL (9.6-12.0); NRBC # 0.14 10*3/uL; Neutrophils % 83.7 % (38.7-73.9); Platelet Count 153 T/CUMM (130-400); Red Blood Count 3.08 MC/CUMM (3.8-5.5); Red Cell Distribution Width 15.6 % (9.3-17.3); White Blood Count 13.8 T/CUMM (4-12)
[2020-11-10 06:40] LABS: Calcium 8.5 MG/DL (8.5-10.1); Osmolality,Calculated 292.1 MOS/KG (273-304); Potassium 3.7 MMOL/L (3.5-5.1)
[2020-11-10 07:03] LABS: Anisocytosis 2+; Band Neutrophils 17 % (0-10); Burr Cells Few; Lymphocytes 12 % (20-55); Macrocytosis Slight; Nucleated Red Blood Cells 2 (0-5); Platelet Estimate Normal; Poikilocytosis Slight; Segmented Neutrophils 68 % (50-85); Total Cells Counted 100
[2020-11-10] MEDS: INSULIN REGULAR 100 UNIT/ML SUBCUT SCH ×5 (08:04→23:55)
[2020-11-10 09:14] LABS: CDT Result Negative (Negative); CDT Specimen Source STOOL
[2020-11-10] MEDS: CHOLESTYRAMINE 4 GM PACK PO SCH ×4 (09:39→20:57)
[2020-11-10] MEDS: FOLIC ACID 1 MG TABLET PO SCH (09:39)
[2020-11-10] MEDS: PANTOPRAZOLE 40 MG TABLET PO SCH (09:40)
[2020-11-10] MEDS: predniSONE 20 MG TABLET PO SCH (09:40)
[2020-11-10] MEDS: MULTIVITAMIN (CENTRUM) TABLET PO SCH (09:41)
[2020-11-10] MEDS: THIAMINE 100 MG TABLET PO SCH (09:41)
[2020-11-10] MEDS ORDERED: ETOMIDATE 20 MG/10 ML VIAL IV ONE (11:39)
[2020-11-10] MEDS ORDERED: ROCURONIUM 100 MG/10 ML VIAL IV ONE (11:39)
[2020-11-10 12:04] LABS: Red Blood Count 3.54 MC/CUMM (3.8-5.5)
[2020-11-10 12:11] LABS: Basophils % 0.1 % (0.0-0.8); Eosinophils % 0.1 % (0.00-10.9); Hematocrit 36.3 VOL% (42.0-52.0); Hemoglobin 10.9 GM/DL (14.0-18.0); Immature Granulocytes % 3.2 %; Lymphocytes # 1.7 10*3/uL (1.4-4.0); Lymphocytes % 10.8 % (21.2-54.2); Mean Corpuscular Volume 102.5 FL (87-102); Monocytes % 4.3 % (1.7-12.7); NRBC # 0.35 10*3/uL; Neutrophils % 81.5 % (38.7-73.9); Platelet Count 163 T/CUMM (130-400); Red Cell Distribution Width 15.9 % (9.3-17.3); White Blood Count 15.7 T/CUMM (4-12)
[2020-11-10 12:26] LABS: Anisocytosis 2+; Atypical Lymphocytes Few; Band Neutrophils 10 % (0-10); Burr Cells Few; Lymphocytes 16 % (20-55); Macrocytosis 1+; Metamyelocytes 1 %; Myelocytes 2 %; Nucleated Red Blood Cells 3 (0-5); Platelet Estimate Normal; Poikilocytosis Slight; Segmented Neutrophils 66 % (50-85); Total Cells Counted 100
[2020-11-10 12:33] LABS: Alanine Aminotransferase 60 U/L (16-61); Albumin 1.7 G/DL (3.4-5.0); Alkaline Phosphatase 137 U/L (45-117); Aspartate Amino Transferase 109 U/L (0-37); Bilirubin,Total < 0.39 MG/DL (0.2-1.0); Blood Urea Nitrogen 9 MG/DL (7-18); Calcium 8.1 MG/DL (8.5-10.1); Carbon Dioxide 18 MMOL/L (21-32); Estimated Glom Filtration Rate 82 ML/MIN; Glucose 274 MG/DL (74-106); Osmolality,Calculated 302.3 MOS/KG (273-304); Potassium 3.5 MMOL/L (3.5-5.1); Sodium 148 MMOL/L (136-145); Total Protein 6.9 G/DL (6.4-8.3)
[2020-11-10 13:10] LABS: ABG Base Excess -9.8 MMOL/L (-2.5-2.5); ABG HCO3 16.6 MMOL/L (20-26); ABG Oxygen Saturation 98.6 % (95-100); ABG PCO2 34.5 MM HG (35-48); ABG PH 7.279 (7.35-7.45); Allen Test Positive; Pt O2 Delivery Device Ventilator
[2020-11-10 13:51] LABS: CKMB % 12.5 %
[2020-11-10 14:00] LABS: Troponin I 1.01 NG/ML (0.00-0.045)
[2020-11-10] MEDS: SODIUM CHLORIDE 0.45% 1,000 ML IV SCH (15:10)
[2020-11-10 17:30] LABS: ABG Base Excess -8.3 MMOL/L (-2.5-2.5); ABG HCO3 17.7 MMOL/L (20-26); ABG Oxygen Saturation 99.3 % (95-100); ABG PCO2 37.2 MM HG (35-48); ABG PH 7.286 (7.35-7.45); ABG TCO2 16.5 MMOL/L (23-27); Allen Test Positive; Pt O2 Delivery Device Ventilator
[2020-11-10] MEDS: ENOXAPARIN 40 MG/0.4 ML SYRINGE SUBCUT SCH (20:57)
[2020-11-11] MEDS: ALBUTEROL/IPRATROPIUM 3 ML NEB RESP TX SCH ×4 (00:53→19:42)
[2020-11-11] MEDS ORDERED: LACTATED RINGERS 500 ML IV ONE ×2 (03:20→04:20)
[2020-11-11 03:28] LABS: ABG Base Excess -3.1 MMOL/L (-2.5-2.5); ABG HCO3 21.8 MMOL/L (20-26); ABG PCO2 34.9 MM HG (35-48); ABG PH 7.392 (7.35-7.45); ABG TCO2 19.5 MMOL/L (23-27)
[2020-11-11 04:21] LABS: Basophils % 0.1 % (0.0-0.8); Hematocrit 27.9 VOL% (42.0-52.0); Immature Granulocytes % 0.4 %; Immature Granulocytes Absolute 0.05 #; Lymphocytes # 1.6 10*3/uL (1.4-4.0); Lymphocytes % 11.3 % (21.2-54.2); Mean Corpuscular HGB Conc 30.8 GM/DL (32-36); Mean Corpuscular Volume 97.6 FL (87-102); Mean Platelet Volume 11.2 FL (9.6-12.0); Monocytes % 2.1 % (1.7-12.7); NRBC # 0.15 10*3/uL; Neutrophils % 86.1 % (38.7-73.9); Platelet Count 137 T/CUMM (130-400); Red Blood Count 2.86 MC/CUMM (3.8-5.5); Red Cell Distribution Width 15.8 % (9.3-17.3)
[2020-11-11 04:45] LABS: Hemoglobin 8.6 GM/DL (14.0-18.0)
[2020-11-11 04:47] LABS: Osmolality,Calculated 299.9 MOS/KG (273-304); Potassium 4.4 MMOL/L (3.5-5.1)
[2020-11-11] MEDS ORDERED: NOREPINEPHRINE 8 MG in SODIUM CHLORIDE 0.9% 242 ML IV PRN (05:15)
[2020-11-11] MEDS: PIPERACILLIN/TAZOBACTAM 3,375 MG in SODIUM CHLORIDE 0.9% 100 ML IV SCH ×3 (05:21→20:15)
[2020-11-11] MEDS: INSULIN REGULAR 100 UNIT/ML SUBCUT SCH ×3 (05:30→17:59)
[2020-11-11] MEDS: predniSONE 20 MG TABLET PO SCH (09:21)
[2020-11-11] MEDS: MULTIVITAMIN (CENTRUM) TABLET PO SCH (09:21)
[2020-11-11] MEDS: THIAMINE 100 MG TABLET PO SCH (09:21)
[2020-11-11] MEDS: FOLIC ACID 1 MG TABLET PO SCH (09:21)
[2020-11-11] MEDS: CHOLESTYRAMINE 4 GM PACK PO SCH ×4 (09:21→20:16)
[2020-11-11] MEDS: PANTOPRAZOLE 40 MG VIAL IV SCH (09:41)
[2020-11-11] MEDS: SODIUM CHLORIDE 0.45% 1,000 ML IV SCH ×2 (09:43→21:21)
[2020-11-11] MEDS: PANTOPRAZOLE 40 MG TABLET PO SCH (09:51)
[2020-11-11] MEDS: DEXTROSE 50% 25 GM/50 ML VIAL IV PRN (11:20)
[2020-11-11] MEDS: METOCLOPRAMIDE 10 MG/2 ML VIAL IV SCH ×2 (11:59→18:04)
[2020-11-11] MEDS: LIPASE/PROTEASE/AMYLASE 4,200 UNITS CAPSULE PO SCH ×2 (14:05→17:05)
[2020-11-11] MEDS: FLUCONAZOLE INJ 200 MG in PREMIX 1 EACH IV SCH (17:05)
[2020-11-11] MEDS: MIDAZOLAM 100 MG in SODIUM CHLORIDE 0.9% 80 ML IV PRN (18:45)
[2020-11-12] MEDS: ALBUTEROL/IPRATROPIUM 3 ML NEB RESP TX SCH ×4 (00:47→20:20)
[2020-11-12] MEDS: SODIUM CHLORIDE 0.45% 1,000 ML IV SCH ×2 (01:00→17:30)
[2020-11-12] MEDS: METOCLOPRAMIDE 10 MG/2 ML VIAL IV SCH ×4 (01:14→17:30)
[2020-11-12] MEDS: INSULIN REGULAR 100 UNIT/ML SUBCUT SCH ×4 (01:39→19:47)
[2020-11-12 04:13] LABS: ABG Base Excess -2.7 MMOL/L (-2.5-2.5); ABG HCO3 20.6 MMOL/L (20-26); ABG Oxygen Saturation 98.9 % (95-100); ABG PCO2 30.6 MM HG (35-48); ABG PH 7.446 (7.35-7.45); ABG PO2 186.1 MM HG (80-95); ABG TCO2 21.5 MMOL/L (23-27); Allen Test Positive; Pt O2 Delivery Device Ventilator
[2020-11-12 04:28] LABS: Basophils % 0.1 % (0.0-0.8); Eosinophils % 0.1 % (0.00-10.9); Hematocrit 27.3 VOL% (42.0-52.0); Hemoglobin 8.9 GM/DL (14.0-18.0); Immature Granulocytes % 0.5 %; Immature Granulocytes Absolute 0.07 #; Lymphocytes # 1.4 10*3/uL (1.4-4.0); Lymphocytes % 10.2 % (21.2-54.2); Mean Corpuscular HGB Conc 32.6 GM/DL (32-36); Mean Corpuscular Volume 95.5 FL (87-102); Mean Platelet Volume 12.1 FL (9.6-12.0); Monocytes % 3.2 % (1.7-12.7); NRBC # 0.04 10*3/uL; Neutrophils % 85.9 % (38.7-73.9); Platelet Count 126 T/CUMM (130-400); Red Blood Count 2.86 MC/CUMM (3.8-5.5)
[2020-11-12 04:38] LABS: Alanine Aminotransferase 31 U/L (16-61); Albumin 1.4 G/DL (3.4-5.0); Alkaline Phosphatase 107 U/L (45-117); Aspartate Amino Transferase 21 U/L (0-37); Bilirubin,Total < 0.39 MG/DL (0.2-1.0); Blood Urea Nitrogen 14 MG/DL (7-18); Calcium 7.7 MG/DL (8.5-10.1); Carbon Dioxide 23 MMOL/L (21-32); Estimated Glom Filtration Rate 109 ML/MIN; Glucose 173 MG/DL (74-106); Osmolality,Calculated 296.4 MOS/KG (273-304); Potassium 4.8 MMOL/L (3.5-5.1); Sodium 147 MMOL/L (136-145); Total Protein 5.9 G/DL (6.4-8.3)
[2020-11-12 04:44] LABS: INR 1.1; PT Patient Result 11.7 SECS (9.8-11.9); Partial Thromboplastin Time 40.4 SECS (23.9-33.8)
[2020-11-12] MEDS: PIPERACILLIN/TAZOBACTAM 3,375 MG in SODIUM CHLORIDE 0.9% 100 ML IV SCH ×3 (05:28→20:43)
[2020-11-12] MEDS ORDERED: diphenhydrAMINE 50 MG/1 ML VIAL IM ONE (07:30)
[2020-11-12] MEDS ORDERED: MEPERIDINE 50 MG/1 ML VIAL IM ONE ×2 (07:30→08:00)
[2020-11-12] MEDS ORDERED: BENZONATATE 100 MG CAPSULE PO ONE (07:30)
[2020-11-12] MEDS ORDERED: LIDOCAINE 1% 20 ML VIAL MISC INJ ONE (08:00)
[2020-11-12] MEDS ORDERED: LIDOCAINE 2% 20 ML VIAL RESP TX ONE (08:00)
[2020-11-12] MEDS ORDERED: LIDOCAINE 2% VISCOUS 100 ML BOTTLE SWISH/SPIT ONE (08:00)
[2020-11-12] MEDS: PANTOPRAZOLE 40 MG VIAL IV SCH (08:04)
[2020-11-12] MEDS: THIAMINE 100 MG TABLET PO SCH (08:06)
[2020-11-12] MEDS: MULTIVITAMIN (CENTRUM) TABLET PO SCH (08:06)
[2020-11-12] MEDS: FOLIC ACID 1 MG TABLET PO SCH (08:06)
[2020-11-12] MEDS: predniSONE 20 MG TABLET PO SCH (08:06)
[2020-11-12] MEDS: CHOLESTYRAMINE 4 GM PACK PO SCH ×4 (08:07→20:43)
[2020-11-12] MEDS: LIPASE/PROTEASE/AMYLASE 4,200 UNITS CAPSULE PO SCH ×3 (08:14→17:30)
[2020-11-12] MEDS: FLUCONAZOLE INJ 200 MG in PREMIX 1 EACH IV SCH (17:05)
[2020-11-12] MEDS: ENOXAPARIN 40 MG/0.4 ML SYRINGE SUBCUT SCH (20:43)
[2020-11-12] MEDS: MIDAZOLAM 100 MG in SODIUM CHLORIDE 0.9% 80 ML IV PRN (20:45)
[2020-11-13] MEDS: METOCLOPRAMIDE 10 MG/2 ML VIAL IV SCH ×5 (00:29→23:53)
[2020-11-13] MEDS: INSULIN REGULAR 100 UNIT/ML SUBCUT SCH ×5 (01:50→23:53)
[2020-11-13] MEDS: ALBUTEROL/IPRATROPIUM 3 ML NEB RESP TX SCH ×4 (01:58→19:55)
[2020-11-13 03:45] LABS: ABG Base Excess -4.9 MMOL/L (-2.5-2.5); ABG HCO3 20.4 MMOL/L (20-26); ABG Oxygen Saturation 99.6 % (95-100); ABG PCO2 30.2 MM HG (35-48); ABG PH 7.404 (7.35-7.45); ABG TCO2 17.1 MMOL/L (23-27); Allen Test Positive; Pt O2 Delivery Device Ventilator
[2020-11-13 05:06] LABS: Basophils % 0.1 % (0.0-0.8); Hematocrit 28.2 VOL% (42.0-52.0); Hemoglobin 8.9 GM/DL (14.0-18.0); Immature Granulocytes % 0.6 %; Immature Granulocytes Absolute 0.07 #; Lymphocytes # 1.7 10*3/uL (1.4-4.0); Mean Corpuscular HGB Conc 31.6 GM/DL (32-36); Mean Corpuscular Volume 96.6 FL (87-102); Mean Platelet Volume 12.1 FL (9.6-12.0); Monocytes % 4.4 % (1.7-12.7); NRBC # 0.04 10*3/uL; Neutrophils % 80.9 % (38.7-73.9); Platelet Count 155 T/CUMM (130-400); Red Blood Count 2.92 MC/CUMM (3.8-5.5); Red Cell Distribution Width 15.9 % (9.3-17.3); White Blood Count 11.8 T/CUMM (4-12)
[2020-11-13] MEDS: PIPERACILLIN/TAZOBACTAM 3,375 MG in SODIUM CHLORIDE 0.9% 100 ML IV SCH (05:14)
[2020-11-13 05:25] LABS: INR 1.1; PT Patient Result 11.3 SECS (9.8-11.9)
[2020-11-13 05:38] LABS: Osmolality,Calculated 301.7 MOS/KG (273-304); Potassium 4.7 MMOL/L (3.5-5.1)
[2020-11-13] MEDS: SODIUM CHLORIDE 0.45% 1,000 ML IV SCH ×3 (05:52→15:53)
[2020-11-13] MEDS: CHOLESTYRAMINE 4 GM PACK PO SCH ×5 (07:58→20:14)
[2020-11-13] MEDS: PANTOPRAZOLE 40 MG VIAL IV SCH ×3 (08:00→20:15)
[2020-11-13] MEDS: MULTIVITAMIN (CENTRUM) TABLET PO SCH ×2 (08:02→15:09)
[2020-11-13] MEDS: predniSONE 20 MG TABLET PO SCH ×2 (08:02→15:09)
[2020-11-13] MEDS: THIAMINE 100 MG TABLET PO SCH ×2 (08:02→15:09)
[2020-11-13] MEDS: FOLIC ACID 1 MG TABLET PO SCH ×2 (08:02→15:09)
[2020-11-13] MEDS: LIPASE/PROTEASE/AMYLASE 4,200 UNITS CAPSULE PO SCH ×4 (08:18→16:22)
[2020-11-13] MEDS ORDERED: hydrALAZINE 20 MG/1 ML VIAL IV ONE (10:02)
[2020-11-13] MEDS: MIDAZOLAM 100 MG in SODIUM CHLORIDE 0.9% 80 ML IV PRN (13:37)
[2020-11-13] MEDS ORDERED: ETOMIDATE 40 MG/20 ML VIAL IV ONE (14:33)
[2020-11-13] MEDS ORDERED: KETAMINE 500 MG/10 ML VIAL ONE (14:33)
[2020-11-13] MEDS ORDERED: LIDOCAINE 2% 5 ML VIAL ONE (14:33)
[2020-11-13] MEDS: FLUCONAZOLE INJ 200 MG in PREMIX 1 EACH IV SCH (15:19)
[2020-11-13] MEDS ORDERED: amLODIPine 5 MG TABLET PO ONE (20:00)
[2020-11-13] MEDS: ENOXAPARIN 40 MG/0.4 ML SYRINGE SUBCUT SCH (20:15)
[2020-11-14] MEDS: SODIUM CHLORIDE 0.45% 1,000 ML IV SCH ×3 (00:22→17:31)
[2020-11-14] MEDS: ALBUTEROL/IPRATROPIUM 3 ML NEB RESP TX SCH ×4 (01:30→19:40)
[2020-11-14] MEDS: hydrALAZINE 20 MG/1 ML VIAL IV PRN (01:49)
[2020-11-14 04:15] LABS: ABG Base Excess -3.3 MMOL/L (-2.5-2.5); ABG HCO3 19.4 MMOL/L (20-26); ABG Oxygen Saturation 99.1 % (95-100); ABG PCO2 26.6 MM HG (35-48); ABG PO2 230.8 MM HG (80-95); ABG TCO2 20.2 MMOL/L (23-27)
[2020-11-14 04:46] LABS: Basophils % 0.1 % (0.0-0.8); Hemoglobin 8.5 GM/DL (14.0-18.0); Immature Granulocytes % 0.4 %; Immature Granulocytes Absolute 0.04 #; Lymphocytes # 1.2 10*3/uL (1.4-4.0); Lymphocytes % 10.4 % (21.2-54.2); Mean Corpuscular HGB Conc 32.7 GM/DL (32-36); Mean Corpuscular Volume 93.9 FL (87-102); Mean Platelet Volume 11.4 FL (9.6-12.0); Monocytes % 2.6 % (1.7-12.7); Neutrophils % 86.5 % (38.7-73.9); Platelet Count 162 T/CUMM (130-400); Red Blood Count 2.77 MC/CUMM (3.8-5.5); Red Cell Distribution Width 15.5 % (9.3-17.3)
[2020-11-14 05:11] LABS: Calcium 7.5 MG/DL (8.5-10.1); Osmolality,Calculated 291.1 MOS/KG (273-304); Potassium 4.6 MMOL/L (3.5-5.1)
[2020-11-14] MEDS: METOCLOPRAMIDE 10 MG/2 ML VIAL IV SCH ×4 (05:23→23:42)
[2020-11-14] MEDS: INSULIN REGULAR 100 UNIT/ML SUBCUT SCH ×4 (05:23→23:52)
[2020-11-14] MEDS: predniSONE 20 MG TABLET PO SCH (08:43)
[2020-11-14] MEDS: LIPASE/PROTEASE/AMYLASE 4,200 UNITS CAPSULE PO SCH ×3 (08:43→16:56)
[2020-11-14] MEDS: THIAMINE 100 MG TABLET PO SCH (08:43)
[2020-11-14] MEDS: PANTOPRAZOLE 40 MG VIAL IV SCH ×2 (08:43→20:39)
[2020-11-14] MEDS: CHOLESTYRAMINE 4 GM PACK PO SCH ×4 (08:43→20:39)
[2020-11-14] MEDS: MULTIVITAMIN (CENTRUM) TABLET PO SCH (08:44)
[2020-11-14] MEDS: FOLIC ACID 1 MG TABLET PO SCH (08:44)
[2020-11-14] MEDS ORDERED: amLODIPine 5 MG TABLET PO SCH (09:00)
[2020-11-14] MEDS: MIDAZOLAM 100 MG in SODIUM CHLORIDE 0.9% 80 ML IV PRN (09:45)
[2020-11-14] MEDS: FLUCONAZOLE INJ 200 MG in PREMIX 1 EACH IV SCH (16:54)
[2020-11-14] MEDS: ENOXAPARIN 40 MG/0.4 ML SYRINGE SUBCUT SCH (20:40)
[2020-11-15] MEDS: ALBUTEROL/IPRATROPIUM 3 ML NEB RESP TX SCH ×4 (01:04→19:39)
[2020-11-15 04:50] LABS: Basophils % 0.1 % (0.0-0.8); Eosinophils % 0.1 % (0.00-10.9); Hematocrit 26.2 VOL% (42.0-52.0); Hemoglobin 8.4 GM/DL (14.0-18.0); Immature Granulocytes % 0.6 %; Immature Granulocytes Absolute 0.09 #; Lymphocytes # 2.3 10*3/uL (1.4-4.0); Lymphocytes % 14.7 % (21.2-54.2); Mean Corpuscular HGB Conc 32.1 GM/DL (32-36); Mean Corpuscular Volume 95.3 FL (87-102); Mean Platelet Volume 11.2 FL (9.6-12.0); Neutrophils % 77.5 % (38.7-73.9); Platelet Count 199 T/CUMM (130-400); Red Blood Count 2.75 MC/CUMM (3.8-5.5); Red Cell Distribution Width 15.6 % (9.3-17.3); White Blood Count 15.3 T/CUMM (4-12)
[2020-11-15 04:52] LABS: Calcium 8.2 MG/DL (8.5-10.1); Osmolality,Calculated 282.4 MOS/KG (273-304); Potassium 4.3 MMOL/L (3.5-5.1)
[2020-11-15 05:02] LABS: ABG Base Excess -3.2 MMOL/L (-2.5-2.5); ABG HCO3 21.8 MMOL/L (20-26); ABG Oxygen Saturation 99.7 % (95-100); ABG PCO2 26.5 MM HG (35-48); ABG PH 7.475 (7.35-7.45); Allen Test Positive; Pt O2 Delivery Device Ventilator
[2020-11-15] MEDS: SODIUM CHLORIDE 0.45% 1,000 ML IV SCH ×2 (05:30→15:49)
[2020-11-15] MEDS: INSULIN REGULAR 100 UNIT/ML SUBCUT SCH ×3 (06:25→18:12)
[2020-11-15] MEDS: METOCLOPRAMIDE 10 MG/2 ML VIAL IV SCH ×3 (06:26→18:13)
[2020-11-15] MEDS: MIDAZOLAM 100 MG in SODIUM CHLORIDE 0.9% 80 ML IV PRN (06:49)
[2020-11-15] MEDS: CHOLESTYRAMINE 4 GM PACK PO SCH ×4 (10:08→20:36)
[2020-11-15] MEDS: THIAMINE 100 MG TABLET PO SCH (10:08)
[2020-11-15] MEDS: amLODIPine 5 MG TABLET PO SCH (10:09)
[2020-11-15] MEDS: FOLIC ACID 1 MG TABLET PO SCH (10:09)
[2020-11-15] MEDS: predniSONE 20 MG TABLET PO SCH (10:09)
[2020-11-15] MEDS: MULTIVITAMIN (CENTRUM) TABLET PO SCH (10:09)
[2020-11-15] MEDS: PANTOPRAZOLE 40 MG VIAL IV SCH ×2 (10:10→20:30)
[2020-11-15] MEDS: LIPASE/PROTEASE/AMYLASE 4,200 UNITS CAPSULE PO SCH ×3 (10:10→16:02)
[2020-11-15 15:04] LABS: Collection duration of stool Random h; Total Weight of Stool 40 g
[2020-11-15] MEDS: BICILLIN LA 2,400,000 UNIT/4 ML SYRINGE IM SCH (15:51)
[2020-11-15] MEDS: FLUCONAZOLE INJ 200 MG in PREMIX 1 EACH IV SCH (15:54)
[2020-11-15] MEDS: hydrALAZINE 20 MG/1 ML VIAL IV PRN (20:35)
[2020-11-16] MEDS: INSULIN REGULAR 100 UNIT/ML SUBCUT SCH ×4 (00:50→17:23)
[2020-11-16] MEDS: METOCLOPRAMIDE 10 MG/2 ML VIAL IV SCH ×4 (00:50→17:23)
[2020-11-16] MEDS: ALBUTEROL/IPRATROPIUM 3 ML NEB RESP TX SCH ×4 (01:15→19:20)
[2020-11-16 04:27] LABS: Allen Test Positive; Pt O2 Delivery Device Ventilator
[2020-11-16 04:28] LABS: ABG Base Excess -3.2 MMOL/L (-2.5-2.5); ABG HCO3 19.3 MMOL/L (20-26); ABG Oxygen Saturation 98.7 % (95-100); ABG PCO2 25.6 MM HG (35-48); ABG PH 7.495 (7.35-7.45); ABG PO2 150.6 MM HG (80-95); ABG TCO2 20.1 MMOL/L (23-27)
[2020-11-16] MEDS: SODIUM CHLORIDE 0.45% 1,000 ML IV SCH ×2 (05:05→16:17)
[2020-11-16 05:20] LABS: Hematocrit 25.8 VOL% (42.0-52.0); Hemoglobin 8.1 GM/DL (14.0-18.0); Immature Granulocytes % 0.6 %; Immature Granulocytes Absolute 0.09 #; Lymphocytes # 1.7 10*3/uL (1.4-4.0); Lymphocytes % 11.3 % (21.2-54.2); Mean Corpuscular HGB Conc 31.4 GM/DL (32-36); Mean Corpuscular Volume 95.9 FL (87-102); Mean Platelet Volume 10.5 FL (9.6-12.0); Monocytes % 6.9 % (1.7-12.7); Neutrophils % 81.2 % (38.7-73.9); Platelet Count 244 T/CUMM (130-400); Red Blood Count 2.69 MC/CUMM (3.8-5.5); Red Cell Distribution Width 15.5 % (9.3-17.3); White Blood Count 14.6 T/CUMM (4-12)
[2020-11-16 05:33] LABS: INR 1.2; Partial Thromboplastin Time 38.3 SECS (23.9-33.8)
[2020-11-16 05:34] LABS: Calcium 8.1 MG/DL (8.5-10.1); Potassium 4.7 MMOL/L (3.5-5.1)
[2020-11-16] MEDS: THIAMINE 100 MG TABLET PO SCH (08:21)
[2020-11-16] MEDS: predniSONE 20 MG TABLET PO SCH (08:21)
[2020-11-16] MEDS: CHOLESTYRAMINE 4 GM PACK PO SCH ×4 (08:21→21:52)
[2020-11-16] MEDS: amLODIPine 5 MG TABLET PO SCH (08:21)
[2020-11-16] MEDS: FOLIC ACID 1 MG TABLET PO SCH (08:21)
[2020-11-16] MEDS: PANTOPRAZOLE 40 MG VIAL IV SCH ×2 (08:22→21:53)
[2020-11-16] MEDS: LIPASE/PROTEASE/AMYLASE 4,200 UNITS CAPSULE PO SCH ×3 (08:31→17:23)
[2020-11-16] MEDS: MULTIVITAMIN (CENTRUM) TABLET PO SCH (08:31)
[2020-11-16] MEDS ORDERED: FUROSEMIDE 40 MG/4 ML VIAL IV ONE (08:50)
[2020-11-16] MEDS: MIDAZOLAM 100 MG in SODIUM CHLORIDE 0.9% 80 ML IV PRN (11:26)
[2020-11-16] MEDS: FLUCONAZOLE INJ 200 MG in PREMIX 1 EACH IV SCH (17:23)
[2020-11-16] MEDS: INSULIN GLARGINE 100 UNIT/ML SUBCUT SCH (21:54)
[2020-11-17] MEDS: INSULIN REGULAR 100 UNIT/ML SUBCUT SCH ×4 (00:17→17:15)
[2020-11-17] MEDS: METOCLOPRAMIDE 10 MG/2 ML VIAL IV SCH ×4 (00:17→17:15)
[2020-11-17] MEDS: ALBUTEROL/IPRATROPIUM 3 ML NEB RESP TX SCH ×4 (01:23→19:44)
[2020-11-17] MEDS: SODIUM CHLORIDE 0.45% 1,000 ML IV SCH (03:55)
[2020-11-17 03:56] LABS: ABG HCO3 21.5 MMOL/L (20-26); ABG Oxygen Saturation 98.8 % (95-100); ABG PCO2 35.9 MM HG (35-48); ABG PH 7.395 (7.35-7.45); ABG PO2 182.3 MM HG (80-95); ABG TCO2 22.6 MMOL/L (23-27)
[2020-11-17 05:02] LABS: Basophils % 0.1 % (0.0-0.8); Hematocrit 25.6 VOL% (42.0-52.0); Hemoglobin 8.2 GM/DL (14.0-18.0); Immature Granulocytes % 0.6 %; Immature Granulocytes Absolute 0.08 #; Lymphocytes # 1.7 10*3/uL (1.4-4.0); Lymphocytes % 13.2 % (21.2-54.2); Mean Corpuscular Volume 96.6 FL (87-102); Mean Platelet Volume 10.5 FL (9.6-12.0); Monocytes % 8.8 % (1.7-12.7); Neutrophils % 77.3 % (38.7-73.9); Red Blood Count 2.65 MC/CUMM (3.8-5.5); Red Cell Distribution Width 15.6 % (9.3-17.3); White Blood Count 12.9 T/CUMM (4-12)
[2020-11-17 05:04] LABS: Platelet Count 294 T/CUMM (130-400)
[2020-11-17 05:19] LABS: Osmolality,Calculated 285.3 MOS/KG (273-304); Potassium 4.6 MMOL/L (3.5-5.1)
[2020-11-17] MEDS ORDERED: FUROSEMIDE 40 MG/4 ML VIAL IV ONE (08:15)
[2020-11-17] MEDS: LIPASE/PROTEASE/AMYLASE 4,200 UNITS CAPSULE PO SCH ×3 (08:35→17:15)
[2020-11-17] MEDS: PANTOPRAZOLE 40 MG VIAL IV SCH ×2 (08:41→20:44)
[2020-11-17] MEDS: MEROPENEM 500 MG in SODIUM CHLORIDE 0.9% 100 ML IV SCH ×3 (08:41→20:44)
[2020-11-17] MEDS: CHOLESTYRAMINE 4 GM PACK PO SCH ×4 (08:42→20:43)
[2020-11-17] MEDS: predniSONE 20 MG TABLET PO SCH (08:42)
[2020-11-17] MEDS: FOLIC ACID 1 MG TABLET PO SCH (08:42)
[2020-11-17] MEDS: MULTIVITAMIN (CENTRUM) TABLET PO SCH (08:42)
[2020-11-17] MEDS: THIAMINE 100 MG TABLET PO SCH (08:42)
[2020-11-17] MEDS: amLODIPine 5 MG TABLET PO SCH (09:17)
[2020-11-17] MEDS: FLUCONAZOLE INJ 200 MG in PREMIX 1 EACH IV SCH (16:18)
[2020-11-17] MEDS: INSULIN GLARGINE 100 UNIT/ML SUBCUT SCH (20:43)
[2020-11-18] MEDS: ALBUTEROL/IPRATROPIUM 3 ML NEB RESP TX SCH ×4 (00:16→18:49)
[2020-11-18] MEDS: INSULIN REGULAR 100 UNIT/ML SUBCUT SCH ×5 (00:16→20:53)
[2020-11-18] MEDS: METOCLOPRAMIDE 10 MG/2 ML VIAL IV SCH ×4 (00:17→17:16)
[2020-11-18] MEDS: ACETAMINOPHEN 325 MG TABLET PO PRN (00:24)
[2020-11-18] MEDS: MEROPENEM 500 MG in SODIUM CHLORIDE 0.9% 100 ML IV SCH ×4 (03:45→20:53)
[2020-11-18 03:51] LABS: ABG Base Excess -0.8 MMOL/L (-2.5-2.5); ABG HCO3 23.3 MMOL/L (20-26); ABG Oxygen Saturation 98.6 % (95-100); ABG PCO2 36.1 MM HG (35-48); ABG PH 7.428 (7.35-7.45); ABG PO2 140.7 MM HG (80-95); ABG TCO2 24.4 MMOL/L (23-27); Allen Test Positive
[2020-11-18 04:21] LABS: Basophils % 0.1 % (0.0-0.8); Eosinophils % 0.2 % (0.00-10.9); Hematocrit 25.3 VOL% (42.0-52.0); Hemoglobin 8.1 GM/DL (14.0-18.0); Immature Granulocytes % 0.5 %; Immature Granulocytes Absolute 0.05 #; Lymphocytes # 1.9 10*3/uL (1.4-4.0); Lymphocytes % 18.8 % (21.2-54.2); Mean Corpuscular Volume 96.9 FL (87-102); Mean Platelet Volume 10.3 FL (9.6-12.0); Monocytes % 8.6 % (1.7-12.7); Neutrophils % 71.8 % (38.7-73.9); Platelet Count 366 T/CUMM (130-400); Red Blood Count 2.61 MC/CUMM (3.8-5.5); Red Cell Distribution Width 15.5 % (9.3-17.3); White Blood Count 10.1 T/CUMM (4-12)
[2020-11-18 04:34] LABS: Calcium 8.1 MG/DL (8.5-10.1); Osmolality,Calculated 277.3 MOS/KG (273-304); Potassium 4.4 MMOL/L (3.5-5.1)
[2020-11-18] MEDS: CHOLESTYRAMINE 4 GM PACK PO SCH ×4 (08:02→20:54)
[2020-11-18] MEDS: PANTOPRAZOLE 40 MG VIAL IV SCH ×2 (08:03→20:53)
[2020-11-18] MEDS: FOLIC ACID 1 MG TABLET PO SCH (08:03)
[2020-11-18] MEDS: predniSONE 20 MG TABLET PO SCH (08:03)
[2020-11-18] MEDS: THIAMINE 100 MG TABLET PO SCH (08:04)
[2020-11-18] MEDS: MULTIVITAMIN (CENTRUM) TABLET PO SCH (08:04)
[2020-11-18] MEDS: LIPASE/PROTEASE/AMYLASE 4,200 UNITS CAPSULE PO SCH ×3 (08:04→17:17)
[2020-11-18] MEDS ORDERED: MAGNESIUM SULF RIDER 4 GM in PREMIX 1 EACH IV ONE (08:20)
[2020-11-18] MEDS: DEXTROSE 50% 25 GM/50 ML VIAL IV PRN (08:45)
[2020-11-18] MEDS: amLODIPine 5 MG TABLET PO SCH (08:53)
[2020-11-18] MEDS: HYDROCORTISONE 100 MG VIAL IV SCH ×2 (09:46→17:17)
[2020-11-19] MEDS: METOCLOPRAMIDE 10 MG/2 ML VIAL IV SCH ×2 (00:30→06:03)
[2020-11-19] MEDS: HYDROCORTISONE 100 MG VIAL IV SCH ×3 (01:05→15:59)
[2020-11-19] MEDS: ALBUTEROL/IPRATROPIUM 3 ML NEB RESP TX SCH ×4 (01:43→19:31)
[2020-11-19] MEDS: MEROPENEM 500 MG in SODIUM CHLORIDE 0.9% 100 ML IV SCH ×4 (02:53→21:26)
[2020-11-19 06:12] LABS: Basophils % 0.1 % (0.0-0.8); Hematocrit 26.4 VOL% (42.0-52.0); Hemoglobin 8.3 GM/DL (14.0-18.0); Immature Granulocytes % 0.7 %; Immature Granulocytes Absolute 0.08 #; Lymphocytes # 0.6 10*3/uL (1.4-4.0); Lymphocytes % 4.9 % (21.2-54.2); Mean Corpuscular HGB Conc 31.4 GM/DL (32-36); Mean Corpuscular Volume 96.4 FL (87-102); Mean Platelet Volume 10.9 FL (9.6-12.0); Monocytes % 3.4 % (1.7-12.7); Neutrophils % 90.9 % (38.7-73.9); Platelet Count 413 T/CUMM (130-400); Red Blood Count 2.74 MC/CUMM (3.8-5.5); Red Cell Distribution Width 15.7 % (9.3-17.3); White Blood Count 11.9 T/CUMM (4-12)
[2020-11-19 06:28] LABS: Calcium 8.1 MG/DL (8.5-10.1); Osmolality,Calculated 279.5 MOS/KG (273-304); Potassium 4.7 MMOL/L (3.5-5.1)
[2020-11-19 06:34] LABS: Lymphocytes 4 % (20-55); Segmented Neutrophils 91 % (50-85); Total Cells Counted 100
[2020-11-19 06:35] LABS: Hypochromasia 1+; Microcytosis 1+; Platelet Estimate Adequate
[2020-11-19] MEDS: CHOLESTYRAMINE 4 GM PACK PO SCH ×4 (08:23→21:26)
[2020-11-19] MEDS: INSULIN REGULAR 100 UNIT/ML SUBCUT SCH ×4 (08:23→21:25)
[2020-11-19] MEDS: PANTOPRAZOLE 40 MG VIAL IV SCH (08:23)
[2020-11-19] MEDS: FOLIC ACID 1 MG TABLET PO SCH (08:24)
[2020-11-19] MEDS: amLODIPine 5 MG TABLET PO SCH (08:24)
[2020-11-19] MEDS: THIAMINE 100 MG TABLET PO SCH (08:24)
[2020-11-19] MEDS: MULTIVITAMIN (CENTRUM) TABLET PO SCH (08:24)
[2020-11-19] MEDS: LIPASE/PROTEASE/AMYLASE 4,200 UNITS CAPSULE PO SCH (08:25)
[2020-11-19] MEDS: METOCLOPRAMIDE 10 MG/10 ML UDCUP PO SCH ×3 (11:55→21:26)
[2020-11-19] MEDS: CREON 24,000 UNITS PO SCH ×2 (12:01→16:00)
[2020-11-19] MEDS ORDERED: ERYTHROMYCIN INJ 250 MG in SODIUM CHLORIDE 0.9% 100 ML IV SCH (12:30)
[2020-11-19] MEDS ORDERED: chlordiazePOXIDE 25 MG CAPSULE PO SCH (21:00)
[2020-11-19] MEDS: PANTOPRAZOLE 40 MG TABLET PO SCH (21:26)
[2020-11-19] MEDS: ACETAMINOPHEN 325 MG TABLET PO PRN (21:26)
[2020-11-19 22:16] LABS: IgA Serum (MAYO) 1090 mg/dL (61 - 356)
[2020-11-20] MEDS: HYDROCORTISONE 100 MG VIAL IV SCH ×2 (00:20→09:35)
[2020-11-20] MEDS: ALBUTEROL/IPRATROPIUM 3 ML NEB RESP TX SCH ×4 (00:37→21:03)
[2020-11-20] MEDS: MEROPENEM 500 MG in SODIUM CHLORIDE 0.9% 100 ML IV SCH ×4 (04:26→22:31)
[2020-11-20 05:37] LABS: White Blood Count 9.1 T/CUMM (4-12)
[2020-11-20 05:38] LABS: Hematocrit 26.4 VOL% (42.0-52.0); Hemoglobin 8.1 GM/DL (14.0-18.0); Immature Granulocytes % 0.5 %; Immature Granulocytes Absolute 0.05 #; Lymphocytes # 0.6 10*3/uL (1.4-4.0); Lymphocytes % 6.9 % (21.2-54.2); Mean Corpuscular HGB Conc 30.7 GM/DL (32-36); Mean Corpuscular Volume 99.6 FL (87-102); Mean Platelet Volume 9.8 FL (9.6-12.0); Monocytes % 4.5 % (1.7-12.7); Neutrophils % 88.1 % (38.7-73.9); Platelet Count 519 T/CUMM (130-400); Red Blood Count 2.65 MC/CUMM (3.8-5.5); Red Cell Distribution Width 15.8 % (9.3-17.3)
[2020-11-20 06:02] LABS: Calcium 8.5 MG/DL (8.5-10.1); Osmolality,Calculated 281.5 MOS/KG (273-304); Potassium 4.5 MMOL/L (3.5-5.1)
[2020-11-20] MEDS: INSULIN REGULAR 100 UNIT/ML SUBCUT SCH ×4 (09:33→22:30)
[2020-11-20] MEDS: THIAMINE 100 MG TABLET PO SCH (09:35)
[2020-11-20] MEDS: PANTOPRAZOLE 40 MG TABLET PO SCH ×2 (09:35→22:31)
[2020-11-20] MEDS: amLODIPine 5 MG TABLET PO SCH (09:35)
[2020-11-20] MEDS: FOLIC ACID 1 MG TABLET PO SCH (09:35)
[2020-11-20] MEDS: METOCLOPRAMIDE 10 MG/10 ML UDCUP PO SCH ×4 (09:35→22:31)
[2020-11-20] MEDS: MULTIVITAMIN (CENTRUM) TABLET PO SCH (09:35)
[2020-11-20] MEDS: CHOLESTYRAMINE 4 GM PACK PO SCH ×4 (09:35→22:31)
[2020-11-20] MEDS: CREON 24,000 UNITS PO SCH ×3 (09:36→19:43)
[2020-11-20] MEDS ORDERED: HYDROCORTISONE 100 MG VIAL IV SCH (21:00)
[2020-11-21] MEDS: ALBUTEROL/IPRATROPIUM 3 ML NEB RESP TX SCH ×3 (01:28→13:52)
[2020-11-21] MEDS: MEROPENEM 500 MG in SODIUM CHLORIDE 0.9% 100 ML IV SCH ×2 (03:53→09:55)
[2020-11-21] MEDS: THIAMINE 100 MG TABLET PO SCH (08:53)
[2020-11-21] MEDS: METOCLOPRAMIDE 10 MG/10 ML UDCUP PO SCH ×2 (08:53→11:16)
[2020-11-21] MEDS: PANTOPRAZOLE 40 MG TABLET PO SCH (08:53)
[2020-11-21] MEDS: FOLIC ACID 1 MG TABLET PO SCH (08:53)
[2020-11-21] MEDS: amLODIPine 5 MG TABLET PO SCH (08:53)
[2020-11-21] MEDS: CHOLESTYRAMINE 4 GM PACK PO SCH ×2 (08:53→11:16)
[2020-11-21] MEDS: INSULIN REGULAR 100 UNIT/ML SUBCUT SCH ×2 (08:59→11:05)
[2020-11-21] MEDS: MULTIVITAMIN (CENTRUM) TABLET PO SCH (08:59)
[2020-11-21] MEDS ORDERED: HYDROCORTISONE 100 MG VIAL IV SCH (09:00)
[2020-11-21] MEDS: CREON 24,000 UNITS PO SCH ×3 (09:05→11:16)
[2020-11-21 11:52] VITALS: BP 124/95
[2020-11-21] MEDS ORDERED: EPINEPHrine 1 MG/10 ML SYRINGE IV ONE (14:26)
[2020-11-21] MEDS ORDERED: SODIUM BICARBONATE 50 MEQ/50 ML SYRINGE IV ONE (14:26)
[2020-12-03 11:43] LABS: Tissue Transglutaminase IgA Ab 2.2 U/mL
== END 2020-11-21 14:27 | disposition home or self-care (01) | DRG 870 ==
LOC: EDUNIT# → EDBD → N.ED 15:01 → SUATTDRO 18:54 → N.EDINP 18:54 → N.CC 20:05 → N.5E 11-07 17:37 → N.CC 11-10 11:42 → N.5E 11-18 14:20
PROVIDERS: ADMIT Family Medicine; ATTEND Internal Medicine

== ENCOUNTER 2021-02-14 21:07 | Inpatient (IN) ==
[2021-02-14] MEDS ORDERED: NOREPINEPHRINE 8 MG in SODIUM CHLORIDE 0.9% 242 ML IV PRN (21:19)
[2021-02-14] MEDS ORDERED: NOREPINEPHRINE 4 MG/4 ML VIAL IV ONE (21:21)
[2021-02-14 21:26] LABS: ABG Base Excess -20.6 MMOL/L (-2.5-2.5); ABG HCO3 13.5 MMOL/L (20-26); ABG PO2 77.6 MM HG (80-95); ABG TCO2 15.7 MMOL/L (23-27)
[2021-02-14 21:28] LABS: ABG Oxygen Saturation 83.1 % (95-100)
[2021-02-14 21:29] LABS: ABG PCO2 71.8 MM HG (35-48); ABG PH 6.893 (7.35-7.45)
[2021-02-14] MEDS ORDERED: SODIUM BICARBONATE 50 MEQ/50 ML VIAL IV STA (21:30)
[2021-02-14 21:46] LABS: Bilirubin,Urine Negative (Negative); Blood, Urine Small mg/dL (Negative); Glucose,Urine (UA) 150 mg/dL (Negative); Ketones,Urine Negative (Negative); Nitrite,Urine Negative (Negative); Protein,Urine 30 MG/DL; RBC,Urine 56 /HPF (0-4); Urine Appearance CLOUDY (Clear); Urine Color Yellow (Yellow); Urine Specific Gravity 1.013 (1.001-1.035); Urine Urobilinogen < 2.0 EU/DL (0.2-1.0)
[2021-02-14 21:51] LABS: Barbiturates Screen,Urine Negative (Negative); Benzodiazepines Screen,Urine Negative (Negative); Cannabinoid Screen,Urine Negative (Negative); Opiate Screen,Urine Negative (Negative); Phencyclidine Screen,Urine Negative (Negative)
[2021-02-14 21:52] LABS: Albumin 1.8 G/DL (3.4-5.0); Bilirubin,Total 0.6 MG/DL (0.2-1.0); Calcium 9.1 MG/DL (8.5-10.1); Osmolality,Calculated 315.1 MOS/KG (273-304); Total Protein 6.6 G/DL (6.4-8.2)
[2021-02-14 21:55] LABS: Basophils % 0.2 % (0.0-0.8); Eosinophils % 0.2 % (0.00-10.9); Hematocrit 31.6 VOL% (42.0-52.0); Immature Granulocytes % 2.9 %; Lymphocytes # 4.3 10*3/uL (1.4-4.0); Lymphocytes % 30.9 % (21.2-54.2); Mean Corpuscular HGB Conc 28.5 GM/DL (32-36); Mean Corpuscular Volume 107.8 FL (87-102); Mean Platelet Volume 11.8 FL (9.6-12.0); Monocytes % 3.6 % (1.7-12.7); NRBC # 0.12 10*3/uL; Neutrophils % 62.2 % (38.7-73.9); Platelet Count 270 T/CUMM (130-400); Red Blood Count 2.93 MC/CUMM (3.8-5.5); White Blood Count 13.8 T/CUMM (4-12)
[2021-02-14 21:56] LABS: Potassium 6.3 MMOL/L (3.5-5.1)
[2021-02-14] MEDS ORDERED: SODIUM CHLORIDE 0.9% 1,000 ML IV STA ×2 (22:10→23:12)
[2021-02-14] MEDS ORDERED: INSULIN REGULAR 100 UNIT/ML IV STA (22:10)
[2021-02-14] MEDS ORDERED: INSULIN REGULAR DRIP 100 ML IV PRN (22:34)
[2021-02-14] MEDS ORDERED: PIPERACILLIN/TAZOBACTAM 3,375 MG in SODIUM CHLORIDE 0.9% 100 ML IV STA (22:35)
[2021-02-14] MEDS ORDERED: ENOXAPARIN 40 MG/0.4 ML SYRINGE SUBCUT SCH (23:45)
[2021-02-14 23:47] VITALS: BP 120/78
[2021-02-14 23:49] LABS: ABG HCO3 13.7 MMOL/L (20-26); ABG Oxygen Saturation 99.2 % (95-100); ABG TCO2 14.8 MMOL/L (23-27)
[2021-02-14 23:51] LABS: ABG PH 7.108 (7.35-7.45)
[2021-02-14] MEDS ORDERED: INSULIN REGULAR 100 UNIT/ML IV ONE (23:58)
[2021-02-14] MEDS ORDERED: POTASSIUM CHLORIDE RIDER 10 MEQ/100 ML PREMIX IV PRN (23:58)
[2021-02-14] MEDS ORDERED: SODIUM CHLORIDE 0.9% 1,000 ML IV ONE (23:58)
[2021-02-14] MEDS ORDERED: MAGNESIUM SULF RIDER 4 GM/100 ML PREMIX IV PRN (23:58)
[2021-02-14] MEDS ORDERED: DEXTROSE 50% 25 GM/50 ML VIAL IV PRN ×2 (23:58)
[2021-02-14] MEDS ORDERED: SODIUM PHOSPHATE INJ 12 MMOL in SODIUM CHLORIDE 0.9% 250 ML IV PRN (23:58)
[2021-02-14] MEDS ORDERED: MAGNESIUM SULF RIDER 2 GM/50 ML PREMIX IV PRN (23:58)
[2021-02-14] MEDS ORDERED: SODIUM BICARB INJ 100 MEQ in STERILE WATER INJ 400 ML IV PRN (23:58)
[2021-02-15 00:02] LABS: Calcium 9.4 MG/DL (8.5-10.1); Osmolality,Calculated 326.7 MOS/KG (273-304); Potassium 3.3 MMOL/L (3.5-5.1)
[2021-02-15] MEDS ORDERED: CALCIUM GLUCONATE 1,000 MG in SODIUM CHLORIDE 0.9% 100 ML IV ONE (00:03)
[2021-02-15] MEDS ORDERED: SODIUM POLYSTYRENE SULFATE 15 GM/60 ML BOTTLE PO STA (00:03)
[2021-02-15] MEDS ORDERED: ALBUTEROL 2.5 MG/3 ML NEB RESP TX PRN (00:04)
[2021-02-15] MEDS: INSULIN REGULAR DRIP 100 ML IV SCH ×2 (00:26→01:32)
[2021-02-15] MEDS: PANTOPRAZOLE 40 MG VIAL IV SCH (00:34)
[2021-02-15 00:55] LABS: Calcium 9.3 MG/DL (8.5-10.1); Osmolality,Calculated 327.6 MOS/KG (273-304); Potassium 3.4 MMOL/L (3.5-5.1)
[2021-02-15] MEDS: SODIUM CHLORIDE 0.9% 1,000 ML IV SCH ×2 (01:32→03:28)
[2021-02-15 01:58] LABS: ABG Base Excess -10.8 MMOL/L (-2.5-2.5); ABG HCO3 15.9 MMOL/L (20-26); ABG Oxygen Saturation 97.3 % (95-100); ABG PCO2 43.5 MM HG (35-48); ABG TCO2 15.8 MMOL/L (23-27)
[2021-02-15] MEDS ORDERED: MIDAZOLAM 100 MG in SODIUM CHLORIDE 0.9% 80 ML IV PRN (01:59)
[2021-02-15] MEDS ORDERED: CISATRACURIUM 10 MG/5 ML VIAL IV PRN (02:02)
[2021-02-15 02:05] LABS: Basophils % 0.1 % (0.0-0.8); Hematocrit 30.6 VOL% (42.0-52.0); Hemoglobin 9.4 GM/DL (14.0-18.0); Immature Granulocytes % 0.7 %; Lymphocytes # 1.1 10*3/uL (1.4-4.0); Lymphocytes % 7.3 % (21.2-54.2); Mean Corpuscular HGB Conc 30.7 GM/DL (32-36); Mean Corpuscular Volume 99.7 FL (87-102); Monocytes % 3.5 % (1.7-12.7); NRBC # 0.03 10*3/uL; Neutrophils % 88.4 % (38.7-73.9); Platelet Count 284 T/CUMM (130-400); Red Blood Count 3.07 MC/CUMM (3.8-5.5); Red Cell Distribution Width 14.7 % (9.3-17.3); White Blood Count 14.4 T/CUMM (4-12)
[2021-02-15 02:07] LABS: ABG PH 7.199 (7.35-7.45)
[2021-02-15 02:24] LABS: INR 1.2; PT Patient Result 13.7 SECS (10.5-12.0); Partial Thromboplastin Time 39.9 SECS (23.9-33.8)
[2021-02-15 02:40] LABS: CKMB % 2.7 %
[2021-02-15 02:52] LABS: Calcium 9.7 MG/DL (8.5-10.1); Osmolality,Calculated 327.4 MOS/KG (273-304); Potassium 3.5 MMOL/L (3.5-5.1)
[2021-02-15 02:53] LABS: High Sensitive Troponin I* 162.9 ng/L (0-78)
[2021-02-15 03:25] LABS: Band Neutrophils 1 % (0-10); Lymphocytes 9 % (20-55); Nucleated Red Blood Cells 1 (0-5); Platelet Estimate Normal; Segmented Neutrophils 87 % (50-85); Total Cells Counted 100
[2021-02-15 03:26] LABS: Polychromasia Slight
[2021-02-15 03:28] LABS: Acanthocytes Few; Macrocytosis Slight
[2021-02-15] MEDS: POTASSIUM CHLORIDE RIDER 20 MEQ/100 ML PREMIX IV PRN (03:51)
[2021-02-15] MEDS: fentaNYL INJ 1,250 MCG in SODIUM CHLORIDE 0.9% 225 ML IV PRN (04:30)
[2021-02-15] MEDS ORDERED: SODIUM CHLORIDE 0.9% 1,000 ML IV SCH (05:00)
[2021-02-15 05:16] LABS: ABG Base Excess -6.9 MMOL/L (-2.5-2.5); ABG HCO3 18.8 MMOL/L (20-26); ABG Oxygen Saturation 98.8 % (95-100); ABG PCO2 37.9 MM HG (35-48); ABG PH 7.304 (7.35-7.45); ABG TCO2 17.4 MMOL/L (23-27)
[2021-02-15 05:49] LABS: Basophils % 0.1 % (0.0-0.8); Hematocrit 29.5 VOL% (42.0-52.0); Hemoglobin 9.2 GM/DL (14.0-18.0); Immature Granulocytes % 0.4 %; Immature Granulocytes Absolute 0.06 #; Lymphocytes # 1.4 10*3/uL (1.4-4.0); Lymphocytes % 9.7 % (21.2-54.2); Mean Corpuscular HGB Conc 31.2 GM/DL (32-36); Mean Corpuscular Volume 97.4 FL (87-102); Mean Platelet Volume 10.3 FL (9.6-12.0); Monocytes % 2.4 % (1.7-12.7); NRBC # 0.05 10*3/uL; Neutrophils % 87.4 % (38.7-73.9); Platelet Count 259 T/CUMM (130-400); Red Blood Count 3.03 MC/CUMM (3.8-5.5); Red Cell Distribution Width 14.5 % (9.3-17.3)
[2021-02-15 06:14] LABS: INR 1.2; PT Patient Result 13.6 SECS (10.5-12.0); Partial Thromboplastin Time 45.3 SECS (23.9-33.8)
[2021-02-15 06:18] LABS: ABG Base Excess -7.3 MMOL/L (-2.5-2.5); ABG HCO3 18.5 MMOL/L (20-26); ABG Oxygen Saturation 98.9 % (95-100); ABG TCO2 16.7 MMOL/L (23-27)
[2021-02-15 06:35] LABS: Band Neutrophils 13 % (0-10); Hypochromasia 1+; Lymphocytes 13 % (20-55); Segmented Neutrophils 72 % (50-85); Total Cells Counted 100
[2021-02-15 06:36] LABS: Burr Cells Slight; Macrocytosis Slight; Polychromasia Slight
[2021-02-15 06:37] LABS: Osmolality,Calculated 328.7 MOS/KG (273-304); Platelet Estimate Normal; Potassium 4.6 MMOL/L (3.5-5.1)
[2021-02-15 07:47] LABS: Calcium 8.7 MG/DL (8.5-10.1); Osmolality,Calculated 329.5 MOS/KG (273-304); Potassium 4.2 MMOL/L (3.5-5.1)
[2021-02-15] MEDS: ENOXAPARIN 100 MG/ML SYRINGE SUBCUT SCH ×2 (08:31→20:56)
[2021-02-15] MEDS ORDERED: SODIUM CHLORIDE 23.4% CONC INJ 38.5 MEQ in STERILE WATER INJ 1,000 ML IV SCH (09:00)
[2021-02-15 12:04] LABS: Basophils % 0.3 % (0.0-0.8); Eosinophils # 0.1 10*3/uL (0.0-0.87); Eosinophils % 0.9 % (0.00-10.9); Hematocrit 26.7 VOL% (42.0-52.0); Hemoglobin 8.3 GM/DL (14.0-18.0); Immature Granulocytes % 0.8 %; Immature Granulocytes Absolute 0.09 #; Lymphocytes # 2.4 10*3/uL (1.4-4.0); Mean Corpuscular HGB Conc 31.1 GM/DL (32-36); Mean Corpuscular Volume 96.4 FL (87-102); Mean Platelet Volume 9.7 FL (9.6-12.0); Monocytes % 7.1 % (1.7-12.7); Neutrophils % 68.9 % (38.7-73.9); Platelet Count 213 T/CUMM (130-400); Red Blood Count 2.77 MC/CUMM (3.8-5.5); Red Cell Distribution Width 14.5 % (9.3-17.3); White Blood Count 10.9 T/CUMM (4-12)
[2021-02-15 12:23] LABS: INR 1.3; PT Patient Result 14.3 SECS (10.5-12.0)
[2021-02-15 12:27] LABS: Partial Thromboplastin Time 62.1 SECS (23.9-33.8)
[2021-02-15 12:28] LABS: Calcium 8.5 MG/DL (8.5-10.1); Potassium 4.2 MMOL/L (3.5-5.1)
[2021-02-15] MEDS: DEXTROSE 5% 1,000 ML IV SCH ×2 (12:39→22:20)
[2021-02-15] MEDS: INSULIN REGULAR 100 UNIT/ML IV SCH ×6 (12:48→22:09)
[2021-02-15 13:04] LABS: Band Neutrophils 6 % (0-10); Lymphocytes 19 % (20-55); Nucleated Red Blood Cells 3 (0-5); Segmented Neutrophils 71 % (50-85); Total Cells Counted 100
[2021-02-15 13:05] LABS: Platelet Estimate Normal; Target Cells Few
[2021-02-15 13:19] LABS: Bacteria,Urine Moderate /HPF (Few); Bilirubin,Urine Negative (Negative); Blood, Urine Moderate mg/dL (Negative); Glucose,Urine (UA) >=500 mg/dL (Negative); Ketones,Urine Negative (Negative); Mucus,Urine Occasional /LPF (Occasional); Nitrite,Urine Negative (Negative); Protein,Urine 30 MG/DL; Squamous Epithelial Cell,Urine Occasional /HPF (0-10); Urine Appearance CLOUDY (Clear); Urine Color Yellow (Yellow); Urine Urobilinogen < 2.0 EU/DL (0.2-1.0)
[2021-02-15 15:50] LABS: Basophils % 0.3 % (0.0-0.8); Eosinophils # 0.2 10*3/uL (0.0-0.87); Eosinophils % 1.4 % (0.00-10.9); Hematocrit 26.5 VOL% (42.0-52.0); Hemoglobin 8.2 GM/DL (14.0-18.0); Immature Granulocytes % 1.1 %; Immature Granulocytes Absolute 0.15 #; Lymphocytes # 2.5 10*3/uL (1.4-4.0); Lymphocytes % 18.5 % (21.2-54.2); Mean Corpuscular HGB Conc 30.9 GM/DL (32-36); Mean Corpuscular Volume 96.7 FL (87-102); Mean Platelet Volume 10.1 FL (9.6-12.0); NRBC # 0.08 10*3/uL; Neutrophils % 72.7 % (38.7-73.9); Platelet Count 211 T/CUMM (130-400); Red Blood Count 2.74 MC/CUMM (3.8-5.5); Red Cell Distribution Width 14.6 % (9.3-17.3); White Blood Count 13.4 T/CUMM (4-12)
[2021-02-15 16:03] LABS: INR 1.3; PT Patient Result 14.1 SECS (10.5-12.0)
[2021-02-15 16:12] LABS: Partial Thromboplastin Time 56.2 SECS (23.9-33.8)
[2021-02-15 16:21] LABS: Calcium 8.7 MG/DL (8.5-10.1); Osmolality,Calculated 329.2 MOS/KG (273-304); Potassium 4.2 MMOL/L (3.5-5.1)
[2021-02-15 17:00] LABS: Band Neutrophils 1 % (0-10); Lymphocytes 20 % (20-55); Segmented Neutrophils 77 % (50-85); Total Cells Counted 100
[2021-02-15] MEDS ORDERED: SODIUM CHLORIDE 0.45% 1,000 ML IV SCH (17:00)
[2021-02-15 17:01] LABS: Burr Cells 1+; Macrocytosis 1+
[2021-02-15 17:02] LABS: Platelet Estimate Normal; Schistocytes 1+
[2021-02-15] MEDS ORDERED: PHENYLEPHRINE DRIP 40 MG/250 ML PREMIX IV PRN (19:17)
[2021-02-15] MEDS ORDERED: PHENYLEPHRINE DRIP 40 MG/250 ML PREMIX IV ONE (19:20)
[2021-02-15] MEDS: MINERAL OIL/PETROLATUM OPH OINT 3.5 GM TUBE BOTH EYES SCH (20:56)
[2021-02-15 22:20] LABS: Basophils % 0.3 % (0.0-0.8); Eosinophils # 0.3 10*3/uL (0.0-0.87); Eosinophils % 2.3 % (0.00-10.9); Hematocrit 27.5 VOL% (42.0-52.0); Hemoglobin 8.4 GM/DL (14.0-18.0); Immature Granulocytes % 0.8 %; Lymphocytes # 2.6 10*3/uL (1.4-4.0); Lymphocytes % 20.6 % (21.2-54.2); Mean Corpuscular HGB Conc 30.5 GM/DL (32-36); Mean Corpuscular Volume 95.8 FL (87-102); Mean Platelet Volume 10.5 FL (9.6-12.0); Monocytes % 5.9 % (1.7-12.7); NRBC # 0.08 10*3/uL; Neutrophils % 70.1 % (38.7-73.9); Platelet Count 230 T/CUMM (130-400); Red Blood Count 2.87 MC/CUMM (3.8-5.5); Red Cell Distribution Width 14.6 % (9.3-17.3); White Blood Count 12.8 T/CUMM (4-12)
[2021-02-15 22:28] LABS: Calcium 8.5 MG/DL (8.5-10.1); Osmolality,Calculated 330.2 MOS/KG (273-304); Potassium 3.8 MMOL/L (3.5-5.1)
[2021-02-15 22:31] LABS: INR 1.3; PT Patient Result 14.1 SECS (10.5-12.0)
[2021-02-15 22:33] LABS: Partial Thromboplastin Time 48.9 SECS (23.9-33.8)
[2021-02-16] MEDS: INSULIN REGULAR 100 UNIT/ML IV SCH ×10 (00:06→18:36)
[2021-02-16] MEDS ORDERED: GLUCAGON 1 MG VIAL IM PRN (00:25)
[2021-02-16] MEDS ORDERED: DEXTROSE 50% 25 GM/50 ML VIAL IV PRN (00:25)
[2021-02-16] MEDS: PANTOPRAZOLE 40 MG VIAL IV SCH (00:35)
[2021-02-16 04:07] LABS: Basophils # 0.1 10*3/uL (0.0-0.2); Basophils % 0.4 % (0.0-0.8); Eosinophils # 0.3 10*3/uL (0.0-0.87); Eosinophils % 2.2 % (0.00-10.9); Hematocrit 26.7 VOL% (42.0-52.0); Hemoglobin 8.2 GM/DL (14.0-18.0); Immature Granulocytes % 0.8 %; Lymphocytes % 24.2 % (21.2-54.2); Mean Corpuscular HGB Conc 30.7 GM/DL (32-36); Mean Corpuscular Volume 94.7 FL (87-102); Mean Platelet Volume 10.4 FL (9.6-12.0); Monocytes % 4.5 % (1.7-12.7); NRBC # 0.05 10*3/uL; Neutrophils % 67.9 % (38.7-73.9); Platelet Count 188 T/CUMM (130-400); Red Blood Count 2.82 MC/CUMM (3.8-5.5); Red Cell Distribution Width 14.6 % (9.3-17.3); White Blood Count 12.5 T/CUMM (4-12)
[2021-02-16 04:09] LABS: ABG Base Excess -5.5 MMOL/L (-2.5-2.5); ABG HCO3 18.7 MMOL/L (20-26); ABG Oxygen Saturation 98.2 % (95-100); ABG PCO2 31.3 MM HG (35-48); ABG PH 7.393 (7.35-7.45); ABG PO2 135.4 MM HG (80-95); ABG TCO2 19.6 MMOL/L (23-27)
[2021-02-16 04:22] LABS: Alanine Aminotransferase 31 U/L (16-61); Albumin 1.3 G/DL (3.4-5.0); Alkaline Phosphatase 95 U/L (45-117); Aspartate Amino Transferase 151 U/L (0-37); Bilirubin,Total < 0.39 MG/DL (0.2-1.0); Blood Urea Nitrogen 21 MG/DL (7-18); Calcium 8.5 MG/DL (8.5-10.1); Carbon Dioxide 21 MMOL/L (21-32); Estimated Glom Filtration Rate 85 ML/MIN; Glucose 208 MG/DL (74-106); Potassium 3.6 MMOL/L (3.5-5.1); Total Protein 6.1 G/DL (6.4-8.2)
[2021-02-16 04:25] LABS: Osmolality,Calculated 326.5 MOS/KG (273-304)
[2021-02-16 04:30] LABS: INR 1.3; PT Patient Result 14.4 SECS (10.5-12.0)
[2021-02-16 04:32] LABS: Partial Thromboplastin Time 53.8 SECS (23.9-33.8)
[2021-02-16 04:33] LABS: Calcium 8.5 MG/DL (8.5-10.1); Potassium 3.6 MMOL/L (3.5-5.1)
[2021-02-16 04:34] LABS: Osmolality,Calculated 326.5 MOS/KG (273-304); Sodium 161 MMOL/L (136-145)
[2021-02-16 05:12] LABS: Anisocytosis 2+; Burr Cells Few; Macrocytosis 1+; Platelet Estimate Normal; Poikilocytosis 1+
[2021-02-16 05:13] LABS: Tear Drop Cells Few
[2021-02-16] MEDS: ENOXAPARIN 100 MG/ML SYRINGE SUBCUT SCH ×2 (08:09→21:12)
[2021-02-16] MEDS: DEXTROSE 5% 1,000 ML IV SCH ×3 (08:57→23:42)
[2021-02-16] MEDS: fentaNYL INJ 1,250 MCG in SODIUM CHLORIDE 0.9% 225 ML IV PRN (09:07)
[2021-02-16 09:33] LABS: Basophils # 0.1 10*3/uL (0.0-0.2); Basophils % 0.4 % (0.0-0.8); Eosinophils # 0.3 10*3/uL (0.0-0.87); Eosinophils % 2.4 % (0.00-10.9); Hematocrit 27.5 VOL% (42.0-52.0); Hemoglobin 8.7 GM/DL (14.0-18.0); Immature Granulocytes % 0.9 %; Immature Granulocytes Absolute 0.12 #; Lymphocytes # 2.8 10*3/uL (1.4-4.0); Lymphocytes % 20.3 % (21.2-54.2); Mean Corpuscular HGB Conc 31.6 GM/DL (32-36); Mean Corpuscular Volume 94.8 FL (87-102); Monocytes % 4.5 % (1.7-12.7); NRBC # 0.09 10*3/uL; Neutrophils % 71.5 % (38.7-73.9); Platelet Count 185 T/CUMM (130-400); Red Cell Distribution Width 14.6 % (9.3-17.3)
[2021-02-16 09:45] LABS: INR 1.4; PT Patient Result 14.8 SECS (10.5-12.0); Partial Thromboplastin Time 61.8 SECS (23.9-33.8)
[2021-02-16 09:49] LABS: Calcium 8.5 MG/DL (8.5-10.1); Osmolality,Calculated 328.3 MOS/KG (273-304); Potassium 3.9 MMOL/L (3.5-5.1)
[2021-02-16 09:55] LABS: Anisocytosis 2+; Band Neutrophils 22 % (0-10); Eosinophils 2 % (0-10); Lymphocytes 18 % (20-55); Nucleated Red Blood Cells 2 (0-5); Platelet Estimate Normal; Segmented Neutrophils 53 % (50-85); Smudge Cells Few; Total Cells Counted 100
[2021-02-16 09:56] LABS: Burr Cells Few; Hypochromasia Slight
[2021-02-16 15:16] LABS: Basophils # 0.1 10*3/uL (0.0-0.2); Basophils % 0.4 % (0.0-0.8); Eosinophils # 0.4 10*3/uL (0.0-0.87); Eosinophils % 2.3 % (0.00-10.9); Hematocrit 26.8 VOL% (42.0-52.0); Hemoglobin 8.6 GM/DL (14.0-18.0); Immature Granulocytes % 0.6 %; Lymphocytes # 3.4 10*3/uL (1.4-4.0); Lymphocytes % 21.6 % (21.2-54.2); Mean Corpuscular HGB Conc 32.1 GM/DL (32-36); Mean Platelet Volume 10.1 FL (9.6-12.0); Monocytes % 4.7 % (1.7-12.7); NRBC # 0.12 10*3/uL; Neutrophils % 70.4 % (38.7-73.9); Platelet Count 171 T/CUMM (130-400); Red Blood Count 2.85 MC/CUMM (3.8-5.5); Red Cell Distribution Width 14.7 % (9.3-17.3); White Blood Count 15.9 T/CUMM (4-12)
[2021-02-16 15:36] LABS: Calcium 8.6 MG/DL (8.5-10.1); Osmolality,Calculated 327.2 MOS/KG (273-304); Potassium 3.6 MMOL/L (3.5-5.1)
[2021-02-16 15:41] LABS: INR 1.3; PT Patient Result 14.6 SECS (10.5-12.0)
[2021-02-16 15:44] LABS: Eosinophils 2 % (0-10); Lymphocytes 16 % (20-55); Segmented Neutrophils 78 % (50-85); Total Cells Counted 100
[2021-02-16 15:47] LABS: Anisocytosis 1+; Platelet Estimate Adequate; Schistocytes Few
[2021-02-16] MEDS ORDERED: fentaNYL INJ 1,250 MCG in DEXTROSE 5% 225 ML IV PRN (15:55)
[2021-02-16 15:57] LABS: Partial Thromboplastin Time 58.2 SECS (23.9-33.8)
[2021-02-16] MEDS ORDERED: MIDAZOLAM 100 MG in DEXTROSE 5% 80 ML IV PRN (15:57)
[2021-02-16] MEDS ORDERED: NOREPINEPHRINE 8 MG in DEXTROSE 5% 242 ML IV PRN (15:59)
[2021-02-16 17:31] LABS: ABG Base Excess -5.1 MMOL/L (-2.5-2.5); ABG HCO3 20.2 MMOL/L (20-26); ABG Oxygen Saturation 98.4 % (95-100); ABG PCO2 34.8 MM HG (35-48); ABG TCO2 18.2 MMOL/L (23-27)
[2021-02-16 17:57] LABS: Alanine Aminotransferase 28 U/L (16-61); Albumin 1.3 G/DL (3.4-5.0); Alkaline Phosphatase 100 U/L (45-117); Aspartate Amino Transferase 150 U/L (0-37); Bilirubin,Total < 0.39 MG/DL (0.2-1.0); Blood Urea Nitrogen 17 MG/DL (7-18); CKMB % 3.6 %; Calcium 8.3 MG/DL (8.5-10.1); Carbon Dioxide 21 MMOL/L (21-32); Estimated Glom Filtration Rate 76 ML/MIN; Glucose 191 MG/DL (74-106); Osmolality,Calculated 322.6 MOS/KG (273-304); Potassium 3.8 MMOL/L (3.5-5.1); Total Protein 6.3 G/DL (6.4-8.2)
[2021-02-16 18:08] LABS: Sodium 160 MMOL/L (136-145)
[2021-02-16] MEDS: DEXTROSE 5% IV PRN (19:22)
[2021-02-16] MEDS: PHENYLEPHRINE IV PRN (19:22)
[2021-02-16] MEDS ORDERED: INSULIN LISPRO 100 UNIT/ML SUBCUT SCH (20:00)
[2021-02-16] MEDS: MINERAL OIL/PETROLATUM OPH OINT 3.5 GM TUBE BOTH EYES SCH (21:12)
[2021-02-16 22:16] LABS: Basophils # 0.1 10*3/uL (0.0-0.2); Basophils % 0.3 % (0.0-0.8); Eosinophils # 0.4 10*3/uL (0.0-0.87); Eosinophils % 2.4 % (0.00-10.9); Hematocrit 28.7 VOL% (42.0-52.0); Immature Granulocytes % 0.8 %; Immature Granulocytes Absolute 0.15 #; Lymphocytes % 16.7 % (21.2-54.2); Mean Corpuscular HGB Conc 31.4 GM/DL (32-36); Mean Corpuscular Volume 95.7 FL (87-102); Mean Platelet Volume 10.3 FL (9.6-12.0); Monocytes % 5.7 % (1.7-12.7); NRBC # 0.14 10*3/uL; Neutrophils % 74.1 % (38.7-73.9); Platelet Count 185 T/CUMM (130-400); Red Cell Distribution Width 14.8 % (9.3-17.3); White Blood Count 18.2 T/CUMM (4-12)
[2021-02-16 22:30] LABS: INR 1.3; PT Patient Result 14.5 SECS (10.5-12.0)
[2021-02-16 22:32] LABS: Partial Thromboplastin Time 51.5 SECS (23.9-33.8)
[2021-02-16 22:48] LABS: Calcium 8.3 MG/DL (8.5-10.1); Osmolality,Calculated 322.7 MOS/KG (273-304); Potassium 3.8 MMOL/L (3.5-5.1)
[2021-02-16] MEDS: POTASSIUM CHLORIDE RIDER 20 MEQ/100 ML PREMIX IV PRN (22:58)
[2021-02-16 23:08] LABS: Eosinophils 2 % (0-10); Lymphocytes 11 % (20-55); Platelet Estimate Normal; Segmented Neutrophils 82 % (50-85); Total Cells Counted 100
[2021-02-16 23:09] LABS: Polychromasia Slight
[2021-02-16 23:10] LABS: Schistocytes Few
[2021-02-17] MEDS: INSULIN LISPRO 100 UNIT/ML SUBCUT SCH ×4 (00:09→12:52)
[2021-02-17] MEDS: PANTOPRAZOLE 40 MG VIAL IV SCH (00:09)
[2021-02-17] MEDS: DEXTROSE 5% 1,000 ML IV SCH ×4 (01:26→14:18)
[2021-02-17 04:18] LABS: ABG Base Excess -6.3 MMOL/L (-2.5-2.5); ABG HCO3 19.3 MMOL/L (20-26); ABG Oxygen Saturation 98.6 % (95-100); ABG PCO2 38.3 MM HG (35-48); ABG PH 7.314 (7.35-7.45); ABG TCO2 17.6 MMOL/L (23-27)
[2021-02-17 04:30] LABS: Basophils # 0.1 10*3/uL (0.0-0.2); Basophils % 0.4 % (0.0-0.8); Eosinophils # 0.5 10*3/uL (0.0-0.87); Eosinophils % 2.2 % (0.00-10.9); Hematocrit 29.3 VOL% (42.0-52.0); Immature Granulocytes % 0.9 %; Immature Granulocytes Absolute 0.19 #; Lymphocytes # 3.8 10*3/uL (1.4-4.0); Lymphocytes % 17.6 % (21.2-54.2); Mean Corpuscular HGB Conc 30.7 GM/DL (32-36); Mean Corpuscular Volume 96.4 FL (87-102); Monocytes % 5.5 % (1.7-12.7); NRBC # 0.16 10*3/uL; Neutrophils % 73.4 % (38.7-73.9); Platelet Count 189 T/CUMM (130-400); Red Blood Count 3.04 MC/CUMM (3.8-5.5); Red Cell Distribution Width 14.9 % (9.3-17.3); White Blood Count 21.8 T/CUMM (4-12)
[2021-02-17 04:40] LABS: INR 1.3; PT Patient Result 14.6 SECS (10.5-12.0)
[2021-02-17 04:47] LABS: Alanine Aminotransferase 27 U/L (16-61); Albumin 1.3 G/DL (3.4-5.0); Alkaline Phosphatase 126 U/L (45-117); Aspartate Amino Transferase 155 U/L (0-37); Bilirubin,Total < 0.39 MG/DL (0.2-1.0); Blood Urea Nitrogen 16 MG/DL (7-18); Calcium 8.2 MG/DL (8.5-10.1); Carbon Dioxide 19 MMOL/L (21-32); Estimated Glom Filtration Rate 64 ML/MIN; Glucose 173 MG/DL (74-106); Osmolality,Calculated 318.7 MOS/KG (273-304); Potassium 3.8 MMOL/L (3.5-5.1); Sodium 159 MMOL/L (136-145); Total Protein 6.3 G/DL (6.4-8.2)
[2021-02-17 04:59] LABS: Calcium 8.2 MG/DL (8.5-10.1); Osmolality,Calculated 316.9 MOS/KG (273-304); Potassium 3.7 MMOL/L (3.5-5.1)
[2021-02-17 05:04] LABS: Partial Thromboplastin Time 53.7 SECS (23.9-33.8)
[2021-02-17] MEDS: DEXTROSE 5% IV PRN ×2 (05:22→13:13)
[2021-02-17] MEDS: POTASSIUM CHLORIDE RIDER 20 MEQ/100 ML PREMIX IV PRN (05:22)
[2021-02-17] MEDS: PHENYLEPHRINE IV PRN ×2 (05:22→13:13)
[2021-02-17 05:43] LABS: Anisocytosis 1+; Band Neutrophils 22 % (0-10); Eosinophils 3 % (0-10); Lymphocytes 17 % (20-55); Macrocytosis 1+; Nucleated Red Blood Cells 1 (0-5); Platelet Estimate Normal; Segmented Neutrophils 52 % (50-85); Total Cells Counted 100
[2021-02-17 05:44] LABS: Burr Cells Few
[2021-02-17] MEDS: ENOXAPARIN 100 MG/ML SYRINGE SUBCUT SCH (08:06)
[2021-02-17] MEDS ORDERED: DEXAMETHASONE 10 MG/1 ML VIAL IV SCH (11:30)
== END 2021-02-17 16:22 | disposition expired | DRG 637 ==
LOC: EDUNIT# → EDBD → N.ED 21:07 → SUATTDRO 02-15 00:04 → N.EDINP 02-15 00:04 → N.ICU 02-15 00:34
PROVIDERS: ADMIT Internal Medicine; ATTEND Internal Medicine